=== PATIENT | female | born 1955 | race Caucasian/White ===

== ENCOUNTER 2019-08-14 11:04 | Outpatient (CLI) | payer MEDICAID, SELFPAY | END 2019-08-14 11:05 | disposition home or self-care (01) | LOC: SLEEP 11:19 | PROVIDERS: Family Provider Internal Medicine; PCP Internal Medicine; Visit Provider Internal Medicine | DX: G47.30 Sleep apnea, unspecified (principal) | CPT/HCPCS: 95810; 95811 ==

== ENCOUNTER 2019-08-22 14:03 | Outpatient (CLI) | payer MEDICAID, SELFPAY | END 2019-08-22 14:04 | disposition home or self-care (01) | LOC: RAD 14:08 | PROVIDERS: Family Provider Internal Medicine; PCP Internal Medicine; Visit Provider Internal Medicine | DX: K92.1 Melena (principal) | CPT/HCPCS: 85025 ==

== ENCOUNTER 2019-08-23 07:20 | Day surgery (SDC) | payer MEDICAID, SELFPAY ==
[2019-08-22 18:10] VITALS: BMI 36.6
[2019-08-23] MEDS: sodium chloride 0.9% 1,000 ML 30 ML (08:10)
[2019-08-23 08:12] VITALS: BP 156/80; PULSE 85; RESP 20; TEMP 36.6; O2SAT 95
--- NOTE | 2019-08-23 08:54 | ANES.PREANE2 ---
Pre-Anesthetic Assessment Pre-Anesthetic Assessment: Height/Weight: Height 1.65 m Weight 99.79 kg Temp Pulse Resp BP Pulse Ox 97.9 F 85 20 H 156/80 95 08/23/19 08:12 08/23/19 08:12 08/23/19 08:12 08/23/19 08:12 08/23/19 08:12 Preop Diagnosis: anemia Proposed Procedure: Operation Date: 08/23/19 09:00 Proposed Procedures p EGD(Not Applicable) - Gio Jain MD Was Beta Thomas taken within 24 hours: N/A Last intake: Intake Last Liquid Date 08/22/19 Last Liquid Time 22:00 Last Solid Date 08/22/19 Last Solid Time 19:00 Last Intake: 22:00 Social: Social History: No alcohol and No tobacco Exam: Pre-Anes Outpt Exam: alert, oriented x 3, clear to auscultation bilaterally and regular rate & rhythm Airway: Submandibular: WNL Cervical ROM: WNL MP: 2 Pulmonary: Pulmonary: Asthma, COPD, MUNGUIA, Sleep apnea and SOB Comments: CPAP CV/HEM: CV/HEM: Anemia, Angina (Stable), CAD, CHF and HTN Comments: AL at 38. Stress test OK PFO : : None reported Hepatic: Hepatic: None reported GI: GI: GERD and Hiatus hernia Metabolic: Metabolic: None reported Musc/skel: Musc/skel: Lower Back Pain and OA/DJD Neuropsych: Neuropsych: CVA Comments: CVA 2012 with TPA. resolved R side weakness Anesthetic Plan: ASA status: 3 Anesthesia: Anesthesia Evaluation and MAC Risk of > 500 ml blood loss (7ml/kg in children): No PFSH Anesthesia PFSH: Social History (Updated 08/22/19 @ 14:54 by SUDARSHAN Salazar) Smoking and tobacco status: never smoked Alcohol intake: never History of recent travel: No Data Anesthesia Cardiac Studies: No Data to Display
--- NOTE | 2019-08-23 09:22 | P.HPUD_ITS ---
H&P update H&P Update: DATE OF SURGERY/PROCEDURE: 08/23/19 DATE H&P PERFORMED: 12/04 H&P UPDATE INFORMATION: H&P completed within last 30 days, No changes to prior documentation and H&P is in [facility] EMR on date indicated PREOP DIAGNOSIS: anemia PLANNED PROCEDURE: Operation Date: 08/23/19 09:00 Proposed Procedures p EGD(Not Applicable) - Gio Jain MD Full H&P Perinent History: Medical/Surgical History: Medical History (Updated 08/22/19 @ 15:43 by Gio Jain MD) Essential (primary) hypertension (Acute) GERD (gastroesophageal reflux disease) (Acute) Sleep apnea in adult (Acute) Family History: Family History (Updated 08/07/19 @ 16:20 by Aranza Shankar LPN) Father Myocardial infarction Hypertension Mother Stroke Hypertension Other Clotting disorder Social History: Social History Smoking and tobacco status: never smoked Alcohol intake: never History of recent travel: No
[2019-08-23 09:36] VITALS: BP 127/81; PULSE 78; RESP 16; TEMP 36.1; O2SAT 94
--- NOTE | 2019-08-23 09:39 | ANE.PACU2 ---
 Inpatient post-anesthesia follow up: Airway intact: Yes Vital signs: Temperature 97.0 F Pulse Rate 78 Respiratory Rate 16 Blood Pressure 127/81 Pulse Oximetry 94 Oxygen Delivery Me thod Nasal Cannula Oxygen Flow Rate 3 Fraction of Inspir ed Oxygen Hydration adequate: Yes Nausea and vomiting: No Pain level: 1 Mental status: Baseline
[2019-08-23 09:44] VITALS: BP 121/79; PULSE 76; RESP 18; O2SAT 93
[2019-08-23 09:49] VITALS: BP 121/79; PULSE 76; RESP 18; O2SAT 93
--- NOTE | 2019-08-23 10:14 | SUR.PHASEII ---
Dr. Jain contacted about coming to see the pt and put in discharge orders. He did not respond. I called Addie, she stated Dr. Jain was in a pt room and she would ask him when she could. With still no repose or orders I called Addie again, there was no answer. I let the pt leave without discharge orders or seeing Dr. Jain, telling her I would call her with any additional information.
== END 2019-08-23 10:14 | disposition home or self-care (01) ==
PROVIDERS: Family Provider Internal Medicine; PCP Internal Medicine; Visit Provider Internal Medicine
PROC: 0DJ08ZZ Inspection of Upper Intestinal Tract, Via Natural or Artificial Opening Endoscopic (ICD-10-PCS; CPT 43235; principal; 2019-08-23 09:00)
DX: D64.9 Anemia, unspecified (principal); I10 Essential (primary) hypertension; K21.9 Gastro-esophageal reflux disease without esophagitis; G47.30 Sleep apnea, unspecified; Z82.49 Family history of ischemic heart disease and other diseases of the circulatory system; K22.2 Esophageal obstruction; K44.9 Diaphragmatic hernia without obstruction or gangrene; J44.9 Chronic obstructive pulmonary disease, unspecified; I25.10 Atherosclerotic heart disease of native coronary artery without angina pectoris; I11.0 Hypertensive heart disease with heart failure; I50.9 Heart failure, unspecified; I25.2 Old myocardial infarction
CPT/HCPCS: 12345; 43235; J2704; J7030

== ENCOUNTER 2019-09-28 08:26 | Outpatient (CLI) | payer MEDICAID, SELFPAY ==
--- NOTE | 2019-09-28 08:37 | FL_ITS ---
WS: [id number] UPPER GI WITH AIR TECHNICAL: FLUOROSCOPY TIME: 1.1 minutes CLINICAL INFORMATION: GERD W/O ESOPHAGITIS COMPARISON: None. FINDINGS: Swallowing: Normal. Esophagus: Normal caliber and motility. No evidence of high-grade stricture or mass. Gastroesophageal reflux: None observed. Stomach: Moderate esophageal hiatal hernia. Diffuse thickened gastric rugae consistent with gastritis . Mild mucosal irregularity GE junction with evidence of reflux esophagitis. Some of this likely due to recent history of healed Kenisha-Yung tear. No extraluminal contrast. Duodenum: Duodenal bulb and proximal small bowel normal in appearance. Other findings: Cholecystectomy clips. FL/FL upper GI w air [id number] IMPRESSION: 1. Normal esophageal motility. No evidence of high-grade stricture or mass. No rmal emptying. 2. Moderate esophageal hiatal hernia. Mild reflux visualized in the supine pos ition. 3. Mild irregularity at the GE junction consistent with esophagitis. No high- grade stricture. 4. History of recent healed Kenisha-Yung tear. No evidence of extraluminal co ntrast. 5. Diffuse thickening of the gastric rugae consistent with gastritis. 6. Normal duodenum.
== END 2019-09-28 08:27 | disposition home or self-care (01) ==
LOC: RAD 08:29
PROVIDERS: Family Provider Internal Medicine; PCP Internal Medicine; Visit Provider Surgery
DX: K21.9 Gastro-esophageal reflux disease without esophagitis (principal); K44.9 Diaphragmatic hernia without obstruction or gangrene
CPT/HCPCS: 74246

== ENCOUNTER 2019-12-23 10:41 | Emergency (ER) | payer MEDICAID, SELFPAY ==
[2019-12-23 10:42] VITALS: BP 169/93; PULSE 121; RESP 30; TEMP 36.6; O2SAT 100; BMI 38.6
--- NOTE | 2019-12-23 10:45 | CTR_ITS ---
PROCEDURE INFORMATION: Exam: CT Angiography Chest With Contrast Exam date and time: 12/23/2019 11:26 AM Age: 64 years old Clinical indication: Dyspnea TECHNIQUE: Imaging protocol: Computed tomographic angiography of the chest with intravenous contrast. 3D rendering: MIP and/or 3D reconstructed images were created by the technologist. Radiation optimization: All CT scans at this facility use at least one of these dose optimization techniques: automated exposure control; mA and/or kV adjustment per patient size (includes targeted exams where dose is matched to clinical indication); or iterative reconstruction. Contrast material: OMNI 350; Contrast volume: 95 ml; Contrast route: IV; COMPARISON: CTA Chest-Pulmonary Emb [id number] 10/14/2018 9:04 PM RADIATION DOSE METRICS: Total DLP: 559 mGy-cm FINDINGS: Pulmonary arteries: Limited opacification of the pulmonary arteries due to bolus timing with an attenuation coefficient in the main pulmonary artery of 204 HU, compared with an attenuation coefficient in the pulmonary venous confluence of 380 HU. No gross evidence for pulmonary embolus in the visualized pulmonary arteries. Aorta: Ectasia of the thoracic aorta. Lungs: Interstitial prominence and trace airspace disease. Pleural space: No significant pleural effusion. Heart: Mild left ventricular hypertrophy. Mediastinal space: Hiatal hernia. Lymph nodes: Subcentimeter lymph nodes. Upper abdomen: 8 mm left hepatic lobe cyst. Status post cholecystectomy. Spleen upper limits of normal in size. Bones/joints: Scoliosis and mild degenerative change . CT/CT angio chest PE protcl [id number] IMPRESSION: 1. Limited opacification of the pulmonary arteries due to bolus timing. No gross evidence for pulmonary embolus in the visualized pulmonary arteries. 2. Additional findings as described above. Radiation Dose CTDIVOL = (mGy): DLP = 559 (mGy-cm)
--- NOTE | 2019-12-23 10:45 | XRR_ITS ---
PROCEDURE INFORMATION: Exam: XR Chest, 1 View Exam date and time: 12/23/2019 10:48 AM Age: 64 years old Clinical indication: Dyspnea TECHNIQUE: Imaging protocol: XR of the chest Views: 1 view. COMPARISON: CR Chest 1 [place] [id number] 06/03/2019 11:06 AM FINDINGS: Lungs: Hyperinflation and mild interstitial prominence. No acute infiltrate. Pleural space: No pleural effusion. Heart/Mediastinum: No cardiomegaly. Bones/joints: Postoperative change in the left glenoid. Osteopenia and degenerative change. When correlating with the previous study, no significant interval changes are present. XR/XR chest 1V portable [id number] IMPRESSION: Hyperinflation and mild interstitial prominence.
--- NOTE | 2019-12-23 10:47 | ECG_ITS ---
Measurements Intervals [place] Rate: 106 P: 37 MO: 139 QRS: 29 QRSD: 82 T: 42 QT: 295 QTc: 392 SINUS TACHYCARDIA LOW QRS VOLTAGE IN PRECORDIAL LEADS [QRS DEFLECTION < 1.0 mV IN CHEST LEADS] NONSPECIFIC ST & T-WAVE ABNORMALITY ABNORMAL RHYTHM ECG Compared to ECG 06/03/2019 18:15:11 Low QRS voltage now present Sinus rhythm no longer present T-wave abnormality still present Electronically Signed On 12-23-2019 19:05:21 CDT by Glendy Pretty M.D. [email or web address]
[2019-12-23 10:52] VITALS: PULSE 93; RESP 18; O2SAT 99
[2019-12-23 10:52] LABS: Basophils % 0.6 %; Eosinophils # 0.1 10^3/uL (0.0-0.8); Eosinophils % 1.9 %; Lymphocytes # 1.6 10^3/uL (0.8-4.8); Lymphocytes % 30.5 %; Mean Corpuscular HGB Conc 32.5 g/dL (30.0-36.0); Mean Corpuscular Hemoglobin 27.3 pg (28.0-34.0); Mean Platelet Volume 9.9 fL (7.4-10.4); Monocytes # 0.4 10^3/uL (0.2-0.9); Monocytes % 6.5 %; Neutrophils # 3.2 10^3/uL (1.8-7.7); Nucleated Red Blood Cells % 0 %; Platelet Count 317 10^3/cmm (130-400); Red Blood Count 4.76 10^6/uL (4.1-5.3); Red Cell Distribution Width 13.1 % (12.1-15.1); White Blood Count 5.4 10^3/uL (4.0-10.0)
[2019-12-23] MEDS: ipratropium-albuterol 3 mL Neb INHALATION (10:52)
[2019-12-23] MEDS: LORazepam 2 mg/mL INJ 1 mL 1 MG IVP (10:55)
[2019-12-23] MEDS: ondansetron 2 mg/ML SDV 2 mL 4 MG IVP (10:55)
[2019-12-23] MEDS: sodium chloride 0.9% 500 ML 999 ML IV (10:55)
[2019-12-23 10:59] VITALS: PULSE 96
[2019-12-23 11:09] LABS: Troponin(5th) Baseline 7 ng/L (0-10)
[2019-12-23 11:11] LABS: D Dimer <= 0.27 ug/mIFEU (0-0.59)
[2019-12-23 11:17] LABS: Alanine Aminotransferase 11 U/L (0-33); Albumin Level 4.3 g/dL (3.5-5.2); Alkaline Phosphatase 156 IU/L (35-105); Anion Gap 20.1 (5-19); Aspartate Amino Transferase 15 U/L (0-32); Blood Urea Nitrogen 7 mg/dL (8-23); Calcium 9.7 mg/dL (8.5-10.5); Carbon Dioxide 22 mmol/L (22-29); Chloride 103 mmol/L (98-107); Globulin 2.2 g/dL (1.3-4.6); Glomerular Filtration Rate 63.2 mL/min (90-130); Glucose 161 mg/dL (65-115); NT Pro B Type Natriuretic Pept 99 pg/mL (0-125); Osmolality Calculated 291 mOsm/kg (285-295); Potassium 4.1 mmol/L (3.5-5.1); Sodium 141 mmol/L (136-145); Total Bilirubin 0.2 mg/dL (0.15-1.2); Total Protein 6.5 g/dL (6.6-8.7)
[2019-12-23 11:20] LABS: Lactic Sepsis W/Reflex 4.6 mmol/L (0.5-2.2)
[2019-12-23] MEDS: iohexol 350 mg/mL 100 mL Btl 95 ML IV (11:57)
[2019-12-23 12:36] LABS: Reflex Lactate Order REFLEX LACTIC ORDERD
[2019-12-23 12:43] LABS: Add Urine Microscopic? NO
[2019-12-23 12:44] LABS: Bilirubin Urine Neg (NEGATIVE); Blood Urine Neg (Negative); Glucose Urine UA Norm (Normal); Ketones Urine Negative (Negative); Leukocyte Esterase Urine Negative (Negative); Nitrate Urine Negative (Negative); Protein Urine Neg (Negative); Specific Gravity, Urine 1.005 (1.005-1.030); Urine Appearance Clear (CLEAR); Urine Color Yellow (Yellow); Urobilinogen Urine Norm (Negative); pH Urine 6 (5-7)
--- NOTE | 2019-12-23 12:58 | ED_ITS ---
HPI - SOB/Dyspnea General: Chief Complaint: Shortness of Breath/Dyspnea Stated Complaint: SOB Time Seen by Provider: 12/23/19 10:45 History of Present Illness: HPI Narrative: Patient states that she had an asthma attack yesterday and has had severe pain in her right upper back since. She states that she has a history of pulmonary embolus and this is exactly how that felt. MD elicited complaint: shortness of breath, pain with inspiration, asthma attack and anxiety Pertinent past history: asthma Onset (ago): day(s) Timing: improved Severity: severe Exacerbating factors: exertion, movement and stress Relieving factors: nothing Known history of: asthma Associated symptoms: Reports no associated symptoms Treatment prior to arrival: none Review of Systems General: Reports: 10 or more systems reviewed and unremarkable except in HPI and below Resp: Reports: dyspnea PFSH ED PFSH: Medical History Cervical spondylarthritis Chronic right hip pain CVA (cerebral vascular accident) Demyelinating disease Essential (primary) hypertension GERD (gastroesophageal reflux disease) H/O adenomatous polyp of colon H/O deep venous thrombosis H/O: GI bleed Healed or old pulmonary embolism Hiatal hernia Hypokalemia Myocardial infarction PFO (patent foramen ovale) Sleep apnea in adult TIA (transient ischemic attack) Surgical History History of esophagogastroduodenoscopy (EGD) (~08/2019) S/P cholecystectomy S/P colonoscopy S/P dilatation and curettage S/P hysterectomy S/P rotator cuff repair S/P total knee replacement Family History Father Myocardial infarction Hypertension Mother Stroke Hypertension Other Clotting disorder Social History Smoking and tobacco status: never smoked Alcohol intake: never Marital status: Number of children: 2 History of recent travel: No Current gender identity: Female Physical Exam Const: COMMON NORMALS: patient oriented x3 and alert HENMT: COMMON NORMALS: normocephalic and atraumatic HEAD & SCALP: normocephalic and atraumatic Neck/C-Spine: COMMON NORMALS: no meningeal signs and no JVD Resp: EFFORT & INSPECTION: Yes tachypneic and Yes respiratory distress Cardio: COMMON NORMALS: no JVD, regular rate and regular rhythm RATE: regular rate RHYTHM: regular rhythm GI: COMMON NORMALS: Normal to inspection, nondistended, normoactive bowel sounds present Extremity: COMMON NORMALS: normal to inspection and full ROM Neuro: COMMON NORMALS: patient oriented x3 SENSORIUM/ORIENTATION: Yes alert MENINGEAL SIGNS: Yes no meningeal signs Skin: COMMON NORMALS: no rashes or lesions noted, no jaundice and no mottling GENERAL SKIN EXAM: no rashes or lesions noted Course Vital Signs: Vital signs: Vital Signs Temperature 97.8 F 12/23/19 10:42 Pulse Rate 96 12/23/19 10:59 Respiratory Rate 18 12/23/19 10:52 Blood Pressure 169/93 12/23/19 10:42 Pulse Oximetry 99 12/23/19 10:52 MDM - SOB/Dyspnea Lab Data: Labs: Lab Results 12/23/19 12/23/19 12/23/19 Range/Units 10:45 10:45 10:45 WBC 5.4 (4.0-10.0) 10^3/ uL RBC 4.76 (4.1-5.3) 10^6/u L Hgb 13.0 (11.5-15.3) g/dL Hct 40.0 (37.0-47.0) % MCV 84.0 (81-99) fL MCH 27.3 L (28.0-34.0) pg MCHC 32.5 (30.0-36.0) g/dL RDW 13.1 (12.1-15.1) % Plt Count 317 (130-400) 10^3/c mm MPV 9.9 (7.4-10.4) fL Neut % (Auto) 59.0 % Lymph % (Auto) 30.5 % [place] % (Auto) 6.5 % Eos % (Auto) 1.9 % Baso % (Auto) 0.6 % Neut # (Auto) 3.2 (1.8-7.7) 10^3/u L Lymph # (Auto) 1.6 (0.8-4.8) 10^3/u L [place] # (Auto) 0.4 (0.2-0.9) 10^3/u L Eos # (Auto) 0.1 (0.0-0.8) 10^3/u L Baso # (Auto) 0.0 (0.0-0.1) 10^3/u L Nucleated RBC % (a uto) 0 % Nucleated RBCs # 0.0 /100WBC D-Dimer <= 0.27 (0-0.59) ug/mIFE U Sodium 141 (136-145) mmol/L Potassium 4.1 (3.5-5.1) mmol/L Chloride 103 (98-107) mmol/L Carbon Dioxide 22 (22-29) mmol/L Anion Gap 20.1 H (5-19) BUN 7 L (8-23) mg/dL Creatinine 0.9 (0.5-0.9) mg/dL GFR Calculation 63.2 L (90-130) mL/min Glucose 161 H (65-115) mg/dL Calculated Osmolal ity 291 (285-295) mOsm/k g Lactic Acid (0.5-2.2) mmol/L Calcium 9.7 (8.5-10.5) mg/dL Total Bilirubin 0.2 (0.15-1.2) mg/dL AST 15 (0-32) U/L ALT 11 (0-33) U/L Alkaline Phosphata se 156 H (35-105) IU/L Troponin T Baselin e (0-10) ng/L Troponin T 120 Min havasupai (0-10) ng/L Delta Troponin T (0-10) ABS# NT-Pro-B Natriuret Pep 99 (0-125) pg/mL Total Protein 6.5 L (6.6-8.7) g/dL Albumin 4.3 (3.5-5.2) g/dL Globulin 2.2 (1.3-4.6) g/dL Urine Color (Yellow) Urine Appearance (CLEAR) Urine pH (5-7) Ur Specific Gravit y (1.005-1.030) Urine Protein (Negative) Urine Glucose (UA) (Normal) Urine Ketones (Negative) Urine Blood (Negative) Urine Nitrate (Negative) Urine Bilirubin (NEGATIVE) Urine Urobilinogen (Negative) mg/dL Ur Leukocyte Denise ase (Negative) 12/23/19 12/23/19 12/23/19 Range/Units 10:45 10:45 12:30 WBC (4.0-10.0) 10^3/ uL RBC (4.1-5.3) 10^6/u L Hgb (11.5-15.3) g/dL Hct (37.0-47.0) % MCV (81-99) fL MCH (28.0-34.0) pg MCHC (30.0-36.0) g/dL RDW (12.1-15.1) % Plt Count (130-400) 10^3/c mm MPV (7.4-10.4) fL Neut % (Auto) % Lymph % (Auto) % [place] % (Auto) % Eos % (Auto) % Baso % (Auto) % Neut # (Auto) (1.8-7.7) 10^3/u L Lymph # (Auto) (0.8-4.8) 10^3/u L [place] # (Auto) (0.2-0.9) 10^3/u L Eos # (Auto) (0.0-0.8) 10^3/u L Baso # (Auto) (0.0-0.1) 10^3/u L Nucleated RBC % (a uto) % Nucleated RBCs # /100WBC D-Dimer (0-0.59) ug/mIFE U Sodium (136-145) mmol/L Potassium (3.5-5.1) mmol/L Chloride (98-107) mmol/L Carbon Dioxide (22-29) mmol/L Anion Gap (5-19) BUN (8-23) mg/dL Creatinine (0.5-0.9) mg/dL GFR Calculation (90-130) mL/min Glucose (65-115) mg/dL Calculated Osmolal ity (285-295) mOsm/k g Lactic Acid 4.6 H* (0.5-2.2) mmol/L Calcium (8.5-10.5) mg/dL Total Bilirubin (0.15-1.2) mg/dL AST (0-32) U/L ALT (0-33) U/L Alkaline Phosphata se (35-105) IU/L Troponin T Baselin e 7 (0-10) ng/L Troponin T 120 Min havasupai (0-10) ng/L Delta Troponin T (0-10) ABS# NT-Pro-B Natriuret Pep (0-125) pg/mL Total Protein (6.6-8.7) g/dL Albumin (3.5-5.2) g/dL Globulin (1.3-4.6) g/dL Urine Color Yellow (Yellow) Urine Appearance Clear (CLEAR) Urine pH 6 (5-7) Ur Specific Gravit y 1.005 (1.005-1.030) Urine Protein Neg (Negative) Urine Glucose (UA) Norm (Normal) Urine Ketones Negative (Negative) Urine Blood Neg (Negative) Urine Nitrate Negative (Negative) Urine Bilirubin Neg (NEGATIVE) Urine Urobilinogen Norm (Negative) mg/dL Ur Leukocyte Denise ase Negative (Negative) 12/23/19 Range/Units 12:39 WBC (4.0-10.0) 10^3/ uL RBC (4.1-5.3) 10^6/u L Hgb (11.5-15.3) g/dL Hct (37.0-47.0) % MCV (81-99) fL MCH (28.0-34.0) pg MCHC (30.0-36.0) g/dL RDW (12.1-15.1) % Plt Count (130-400) 10^3/c mm MPV (7.4-10.4) fL Neut % (Auto) % Lymph % (Auto) % [place] % (Auto) % Eos % (Auto) % Baso % (Auto) % Neut # (Auto) (1.8-7.7) 10^3/u L Lymph # (Auto) (0.8-4.8) 10^3/u L [place] # (Auto) (0.2-0.9) 10^3/u L Eos # (Auto) (0.0-0.8) 10^3/u L Baso # (Auto) (0.0-0.1) 10^3/u L Nucleated RBC % (a uto) % Nucleated RBCs # /100WBC D-Dimer (0-0.59) ug/mIFE U Sodium (136-145) mmol/L Potassium (3.5-5.1) mmol/L Chloride (98-107) mmol/L Carbon Dioxide (22-29) mmol/L Anion Gap (5-19) BUN (8-23) mg/dL Creatinine (0.5-0.9) mg/dL GFR Calculation (90-130) mL/min Glucose (65-115) mg/dL Calculated Osmolal ity (285-295) mOsm/k g Lactic Acid (0.5-2.2) mmol/L Calcium (8.5-10.5) mg/dL Total Bilirubin (0.15-1.2) mg/dL AST (0-32) U/L ALT (0-33) U/L Alkaline Phosphata se (35-105) IU/L Troponin T Baselin e (0-10) ng/L Troponin T 120 Min havasupai 6.00 (0-10) ng/L Delta Troponin T -1.00 L (0-10) ABS# NT-Pro-B Natriuret Pep (0-125) pg/mL Total Protein (6.6-8.7) g/dL Albumin (3.5-5.2) g/dL Globulin (1.3-4.6) g/dL Urine Color (Yellow) Urine Appearance (CLEAR) Urine pH (5-7) Ur Specific Gravit y (1.005-1.030) Urine Protein (Negative) Urine Glucose (UA) (Normal) Urine Ketones (Negative) Urine Blood (Negative) Urine Nitrate (Negative) Urine Bilirubin (NEGATIVE) Urine Urobilinogen (Negative) mg/dL Ur Leukocyte Denise ase (Negative) Discharge Plan Discharge Patient Disposition: Home, Self-Care Clinical Impression: Acute dyspnea Thoracic back sprain Qualifiers: Encounter type: initial encounter Qualified Code(s): S23.9XXA - Sprain of unspecified parts of thorax, initial encounter Condition: Stable Prescriptions: No Action irbesartan [Avapro] 150 mg tablet 150 mg PO DAILY RF: 0 fluticasone propionate [Flonase Allergy Relief] 50 mcg/actuation spray,suspension 1 spray INTRANASAL BID RF: 0 docusate sodium [Colace] 100 mg capsule 100 mg PO BID RF: 0 acetaminophen [Tylenol] 325 mg tablet 325 - 650 mg PO PRN RF: 0 sucralfate [Carafate] 1 gram tablet 1 gm PO Q8H 30 Days Qty: 90 RF: 2 potassium chloride 20 mEq tablet extended release 20 meq PO BID RF: 0 nitroglycerin [Nitrostat] 0.4 mg tablet, sublingual 0.4 mg SUBLINGUAL Q5M PRN (Reason: Chest Pain) RF: 0 pantoprazole 40 mg tablet,delayed release (DR/EC) 40 mg PO Q12H Qty: 60 RF: 0 albuterol sulfate 2.5 mg /3 mL (0.083 %) Solution For Nebulization 2.5 mg INHALATION Q4H PRN (Reason: Shortness Of Breath) RF: 0 Benadryl 25 mg Capsule 25 - 50 mg PO BEDTIME RF: 0 ProAir HFA 90 mcg/actuation Hfa Aerosol Inhaler 1 - 2 puff INHALATION Q4H PRN (Reason: Shortness Of Breath) RF: 0 Mylanta Gas Minis 42 mg Tablet,Chewable See Rx Instructions .ROUTE .COMPLEX RF: 0 furosemide 40 mg tablet 40 mg PO DAILY RF: 0 Discharge Orders: Discharge Order (Routine); Ordered 12/23/19 Ordered By: Sterling Mg Referrals: Gio Jain MD [Primary Care Provider] - Coding Level of Care Code ED International Affairs Vice President for Chg Fwd Exam Comprehensive
[2019-12-23 14:30] VITALS: BP 118/84; PULSE 93; O2SAT 95
== END 2019-12-23 14:30 | disposition home or self-care (01) ==
PROVIDERS: Emergency Provider Family Medicine; PCP Internal Medicine
DX: R06.00 Dyspnea, unspecified (principal); S23.9XXA Sprain of unspecified parts of thorax, initial encounter; X58.XXXA Exposure to other specified factors, initial encounter; Z86.73 Personal history of transient ischemic attack (TIA), and cerebral infarction without residual deficits; I10 Essential (primary) hypertension; I25.2 Old myocardial infarction
CPT/HCPCS: 12345; 36415; 71045; 71275; 80053; 81003; 83605; 83880; 84484; 85025; 85378; 93005; 94640; 96374; 96375; 99283; 99284; J2060; J2405; J7040; Q9967

== ENCOUNTER 2020-02-04 11:51 | Outpatient (CLI) | payer MEDICAID, SELFPAY ==
--- NOTE | 2020-02-04 12:02 | XR_ITS ---
WS: [id number] CHEST 2 VIEWS HISTORY: Pneumonia COMPARISON: 12/23/2019 Lungs: Clear with no abnormality. No pleural effusion or pneumothorax. Cardiac size: Normal. Mediastinum/Aorta: Mild atherosclerosis aorta. Bones: Normal. XR/XR chest 2V* [id number] IMPRESSION: Partially calcified aorta. No pneumonia.
[2020-02-04 12:50] LABS: Basophils # 0.1 10^3/uL (0.0-0.1); Basophils % 0.8 %; Eosinophils # 0.1 10^3/uL (0.0-0.8); Eosinophils % 1.6 %; Hematocrit 44.7 % (37.0-47.0); Hemoglobin 14.1 g/dL (11.5-15.3); Lymphocytes # 1.8 10^3/uL (0.8-4.8); Lymphocytes % 23.4 %; Mean Corpuscular HGB Conc 31.5 g/dL (30.0-36.0); Mean Corpuscular Hemoglobin 26.3 pg (28.0-34.0); Mean Corpuscular Volume 83.4 fL (81-99); Monocytes # 0.5 10^3/uL (0.2-0.9); Monocytes % 6.5 %; Neutrophils # 5.15 10^3/uL (1.8-7.7); Nucleated Red Blood Cells % 0 %; Platelet Count 355 10^3/cmm (130-400); Red Blood Count 5.36 10^6/uL (4.1-5.3); Red Cell Distribution Width 13.2 % (12.1-15.1); White Blood Count 7.7 10^3/uL (4.0-10.0)
[2020-02-05 15:45] LABS: Immunoglobulin E 4 kU/L (<OR=114)
== END 2020-02-04 11:52 | disposition home or self-care (01) ==
PROVIDERS: PCP Internal Medicine; Visit Provider Internal Medicine Pulmonary Disease
DX: R04.2 Hemoptysis (principal); J45.40 Moderate persistent asthma, uncomplicated; K21.9 Gastro-esophageal reflux disease without esophagitis; G47.33 Obstructive sleep apnea (adult) (pediatric); Z99.89 Dependence on other enabling machines and devices
CPT/HCPCS: 71046; 82785; 85025

== ENCOUNTER → 2020-02-22 10:47 | Outpatient (BNVA) | payer MEDICAID, SELFPAY | PROVIDERS: PCP Internal Medicine; Visit Provider Internal Medicine | DX: R04.2 Hemoptysis (principal) | CPT/HCPCS: 87635 ==

== ENCOUNTER 2020-02-27 06:51 | Outpatient (CLI) | payer MEDICAID, SELFPAY ==
--- NOTE | 2020-02-27 07:15 | PFTS_ITS ---
Date of Study:02/27/20 Date of Dictation: MECHANICS: Forced vital capacity (FVC) is normal. Forced expiratory volume in one second (FEV1) is normal. FEV1/FVC is normal. FLOW VOLUME LOOP: Normal. LUNG VOLUMES: Total lung capacity (TLC) is normal. Residual volume (RV) is reduced. DIFFUSING CAPACITY FOR CARBON MONOXIDE: Normal. INTERPRETATION: The pulmonary function tests are normal. There is no significant postbronchodilator response. The total lung capacity is normal. The reduced residual volume is secondary to an increase in expiratory reserve volume. Gas exchange (DLCO) is normal. MTDD
== END 2020-02-27 06:52 | disposition home or self-care (01) ==
LOC: RT 06:54
PROVIDERS: PCP Internal Medicine; Visit Provider Internal Medicine Pulmonary Disease
DX: J45.40 Moderate persistent asthma, uncomplicated (principal); K21.9 Gastro-esophageal reflux disease without esophagitis; G47.33 Obstructive sleep apnea (adult) (pediatric); Z99.89 Dependence on other enabling machines and devices; R04.2 Hemoptysis
CPT/HCPCS: 94060; 94726; 94729; J7611

== ENCOUNTER → 2020-07-03 14:10 | Outpatient (BNVA) | payer MEDICAID, SELFPAY | PROVIDERS: PCP Internal Medicine; Visit Provider Internal Medicine | DX: R10.9 Unspecified abdominal pain (principal); R30.0 Dysuria | CPT/HCPCS: 81000 ==

== ENCOUNTER 2020-07-08 08:28 | Emergency (ER) | payer MEDICAID, SELFPAY ==
[2020-07-08 08:33] VITALS: BP 168/91; PULSE 90; RESP 16; TEMP 36.6; O2SAT 97; BMI 41.1
[2020-07-08 08:39] VITALS: BP 151/98; PULSE 74; RESP 18; O2SAT 95
--- NOTE | 2020-07-08 08:54 | CT_ITS ---
WS: [id number] CT ABDOMEN AND PELVIS WITH CONTRAST HISTORY: Diarrhea and abdominal pain. RIGHT lower quadrant pain for one week. TECHNIQUE: Imaging performed of the abdomen and pelvis with IV contrast. Single phase imaging of the abdomen. Coronal and sagittal reformats are submitted. All CT scans at [facility] use at least one of these dose optimization techniques: automated exposure control; mA and/or kV adjustment per patient size (includes targeted exams where dose is matched to clinical indication); or iterativ e reconstruction. IV CONTRAST: Omnipaque 300; 95 mL IV. Oral contrast: No DLP: 1674.08 mGy.cm COMPARISON: 04/27/2019 Lower thorax: Lung bases are clear. Heart is normal size. Moderate size hiatal hernia. Liver/biliary system: Normal size liver. Simple cysts in the LEFT lobe of the liver. No bile duct dil atation. Gallbladder: Status post cholecystectomy. Pancreas: Normal. Spleen: Normal. Adrenal glands: Normal. Right kidney: Normal. Left kidney: Normal. Aorta: Normal. Lymphadenopathy: None. Free fluid: None. GI tract: Numerous medicinal tablets in the stomach. The appendix is normal. No GI tract obstruction. Numerous diverticula are present within the distal descending and sigmoid colon. No abscess or free fluid. Abdominal wall: Fat containing umbilical hernia. Pelvis: Prior hysterectomy. Urinary bladder is negative. Bones: Vacuum disc phenomenon at L5-S1. Bilateral facet joint arthritis at L4-5 and L5-S1. CT/CT abdomen pelvis w con* [id number] IMPRESSION: 1. Descending colon and sigmoid diverticulosis. No definite evidence for acute diverticulitis. There is no abscess or pericolonic inflammation. 2. Normal appendix. 3. No renal obstruction. 4. Prior cholecystectomy. 5. LEFT hepatic cysts.
--- NOTE | 2020-07-08 08:54 | XR_ITS ---
WS: [id number] PORTABLE CHEST HISTORY: dyspnea/cough COMPARISON: 02/04/2020 Lungs are clear and well expanded. No pleural effusion or pneumothorax. Cardiac size: Mildly enlarged cardiac silhouette. Mediastinum/Aorta: Mild atherosclerosis aorta. No osseous abnormality seen. XR/XR chest 1V portable [id number] IMPRESSION: Unremarkable portable chest.
--- NOTE | 2020-07-08 09:05 | W.ED.ABDPA2 ---
HPI - Abdominal Pain General: Chief Complaint: Abdominal Pain Stated Complaint: ABD PAIN Time Seen by Provider: 07/08/20 08:35 History of Present Illness: HPI narrative: 64-year-old female presents complaining with abdominal pain and nausea and bloating that began overnight. She had some diarrhea the last couple of days and has had generalized flulike symptoms as well with loose watery watery stools at times she has been very nauseated as well she localizes most of her pain to the right lower quadrant she denies any fever. MD elicited complaint: abdominal pain Onset (ago): hour(s) Pain Consistency: constant Location: RLQ Severity: moderate Quality: cramping and aching Radiation: none Exacerbating factors: eating and movement Associated Symptoms: Reports anorexia, bloating, change in bowel habits, GI cramping and nausea; Denies belching, change in stool character, chills, coffee ground emesis, constipation, diarrhea, dyspepsia, dysuria, excessive flatus, fever(s), heartburn, hematochezia, hematuria, hematemesis, fecal incontinence, loose stools, melena, poor appetite, syncope and vomiting Review of Systems Const: Denies: fever(s) or chills ENMT: Denies: throat pain, ear or mastoid pain, nasal discharge or nasal congestion Card: Denies: syncope Resp: Denies: dyspnea, productive cough or non-productive cough GI: Reports: nausea, GI cramping and change in bowel habits; Denies: vomiting, hematemesis, coffee ground emesis, heartburn, diarrhea, constipation, belching, fecal incontinence, change in stool character, hematochezia or melena : Denies: dysuria or hematuria Skin/Breast: Denies: rash or pruritus PFSH ED PFSH: Medical History Cervical spondylarthritis Chronic right hip pain CVA (cerebral vascular accident) Demyelinating disease Essential (primary) hypertension GERD (gastroesophageal reflux disease) H/O adenomatous polyp of colon H/O deep venous thrombosis H/O: GI bleed Healed or old pulmonary embolism Hiatal hernia Hypokalemia Myocardial infarction LOCO (obstructive sleep apnea) PFO (patent foramen ovale) Sleep apnea in adult TIA (transient ischemic attack) Surgical History History of esophagogastroduodenoscopy (EGD) (~08/2019) S/P cholecystectomy S/P colonoscopy S/P dilatation and curettage S/P hysterectomy S/P rotator cuff repair S/P total knee replacement Family History Father Myocardial infarction Hypertension Mother Stroke Hypertension Other Clotting disorder Social History Smoking and tobacco status: never smoked Second hand smoke exposure: Yes Alcohol intake: never Lives independently: Yes Household members: none Marital status: Number of children: 2 Current occupational status: retired and disabled History of recent travel: No Current gender identity: Female Physical Exam Const: COMMON NORMALS: no acute distress GENERAL APPEARANCE: cooperative and comfortable ORIENTATION/CONSCIOUSNESS: Yes awake, Yes oriented to person, Yes oriented to place and Yes oriented to time HENMT: COMMON NORMALS: normocephalic, atraumatic and hearing grossly normal bilaterally HEAD & SCALP: normocephalic and atraumatic Neck/C-Spine: COMMON NORMALS: no JVD Resp: COMMON NORMALS: normal respiratory effort, No retractions, No use of accessory muscles and clear to auscultation bilaterally AUSCULTATION: clear to auscultation bilaterally Cardio: COMMON NORMALS: no JVD, regular rate, regular rhythm and No murmurs present (Cardio) RATE: regular rate RHYTHM: regular rhythm GI: COMMON NORMALS: Soft to palpation and No hepatosplenomegaly present AUSCULTATION: Yes normoactive bowel sounds PALPATION: Yes Soft to palpation, Yes Tenderness to palpation present (GI) Details: RLQ, No Guarding due to palpation present (GI) and Yes No hepatosplenomegaly present Extremity: COMMON NORMALS: normal to inspection, capillary refill normal, no clubbing, cyanosis or edema, no calf tenderness and no pedal edema Neuro: SENSORIUM/ORIENTATION: Yes oriented to person, Yes oriented to place and Yes oriented to time Skin: COMMON NORMALS: no rashes or lesions noted GENERAL SKIN EXAM: no rashes or lesions noted Course Vital Signs: Vital signs: Vital Signs Temperature 97.9 F 07/08/20 08:33 Pulse Rate 74 12/22/20 08:39 Respiratory Rate 18 07/08/20 09:18 Blood Pressure 151/98 07/08/20 08:39 Pulse Oximetry 95 07/08/20 09:18 MDM - Abdominal Pain MDM Narrative: Medical decision making narrative: Reviewed CT and labs with the patient. She is actually feeling quite a bit better will discharge home with Zofran if she has any worsening or change symptoms return no evidence of diverticulitis no evidence of appendicitis Lab Data: Labs: Lab Results 07/08/20 07/08/20 07/08/20 Range/Units 08:15 08:15 09:03 WBC 6.3 (4.0-10.0) 10^3/ uL RBC 5.02 (4.1-5.3) 10^6/u L Hgb 13.6 (11.5-15.3) g/dL Hct 41.8 (37.0-47.0) % MCV 83.3 (81-99) fL MCH 27.1 L (28.0-34.0) pg MCHC 32.5 (30.0-36.0) g/dL RDW 13.5 (12.1-15.1) % Plt Count 309 (130-400) 10^3/c mm MPV 10.7 H (7.4-10.4) fL Neut % (Auto) 66.7 % Lymph % (Auto) 22.7 % Clay % (Auto) 6.5 % Eos % (Auto) 1.9 % Baso % (Auto) 0.6 % Neut # (Auto) 4.22 (1.8-7.7) 10^3/u L Lymph # (Auto) 1.4 (0.8-4.8) 10^3/u L Clay # (Auto) 0.4 (0.2-0.9) 10^3/u L Eos # (Auto) 0.1 (0.0-0.8) 10^3/u L Baso # (Auto) 0.0 (0.0-0.1) 10^3/u L Nucleated RBC % (a uto) 0 % Nucleated RBCs # 0.0 /100WBC Sodium 136 (136-145) mmol/L Potassium 3.8 (3.5-5.1) mmol/L Chloride 100 (98-107) mmol/L Carbon Dioxide 26 (22-29) mmol/L Anion Gap 13.8 (5-19) BUN 8 (8-23) mg/dL Creatinine 0.9 (0.5-0.9) mg/dL GFR Calculation 63.2 L (90-130) mL/min Glucose 141 H (65-115) mg/dL Calculated Osmolal ity 283 L (285-295) mOsm/k g Calcium 9.2 (8.5-10.5) mg/dL Total Bilirubin 0.3 (0.15-1.2) mg/dL AST 17 (0-32) U/L ALT 14 (0-33) U/L Alkaline Phosphata se 131 H (35-105) IU/L Creatine Kinase 65 (26-192) U/L Total Protein 6.6 (6.6-8.7) g/dL Albumin 4.1 (3.5-5.2) g/dL Globulin 2.5 (1.3-4.6) g/dL Lipase 31 (13-60) U/L Urine Color Straw (Yellow) Urine Appearance Clear (CLEAR) Urine pH 7 (5-7) Ur Specific Gravit y 1.005 (1.005-1.030) Urine Protein Neg (Negative) Urine Glucose (UA) Norm (Normal) Urine Ketones Negative (Negative) Urine Blood Neg (Negative) Urine Nitrate Negative (Negative) Urine Bilirubin Neg (Negative) Urine Urobilinogen Norm (Negative) mg/dL Ur Leukocyte Denise ase Negative (Negative) Discharge Plan Discharge Patient Disposition: Home Clinical Impression: Abdominal pain Condition: Stable Prescriptions: New Zofran 4 mg tablet 4 mg PO Q6H PRN (Reason: nausea and vomiting) Qty: 15 RF: 0 No Action docusate sodium [Colace] 100 mg capsule 100 mg PO BID@,18 RF: 0 acetaminophen [Tylenol] 325 mg tablet 325 - 650 mg PO PRN RF: 0 furosemide 40 mg tablet See Rx Instructions .ROUTE .COMPLEX RF: 0 potassium chloride 20 mEq tablet extended release 60 meq PO BID Qty: 90 RF: 6 nitroglycerin [Nitrostat] 0.4 mg tablet, sublingual 0.4 mg SUBLINGUAL Q5M PRN (Reason: Chest Pain) RF: 0 albuterol sulfate 2.5 mg /3 mL (0.083 %) solution for nebulization 2.5 mg INHALATION Q4H PRN (Reason: Shortness Of Breath) Qty: 15 RF: 0 ProAir HFA 90 mcg/actuation HFA aerosol inhaler 1 - 2 puff INHALATION Q4H PRN (Reason: Shortness Of Breath) Qty: 8.5 RF: 3 pantoprazole 40 mg tablet,delayed release (DR/EC) 40 mg PO Q12H Qty: 60 RF: 3 fluticasone propionate [Flonase Allergy Relief] 50 mcg/actuation spray,suspension 1 spray INTRANASAL BID Qty: 15.8 RF: 3 Natural Tears 1.4 % Drops 1 drp ophthalmic (eye) DAILY PRN (Reason: Dry Eyes) RF: 0 Aleve 220 mg Tablet 220 mg PO Q12H PRN (Reason: Pain) RF: 0 28 mg iron- 800 mcg Tablet 1 tab PO PRN RF: 0 Azo Urinary Pain Relief 99.5 mg Tablet 99.5 mg PO PRN RF: 0 Wtc-Fak-Dhsh Tab 1 tab PO DAILY@06 RF: 0 Advair Diskus 500-50 mcg/dose blister with device 1 inh INHALATION BID@06,18 RF: 0 Singulair 10 mg tablet 10 mg PO DAILY@22 RF: 0 Avapro 150 mg tablet 150 mg PO DAILY@06 RF: 0 diphenhydramine HCl [Benadryl] 25 mg Capsule 25 - 50 mg PO DAILY@22 RF: 0 Mylanta Gas Minis 42 mg Tablet,Chewable See Rx Instructions .ROUTE .COMPLEX RF: 0 Discharge Orders: Discharge ED (Routine); Ordered 07/08/20 Ordered By: Cornel Rivers Referrals: Gio Jain MD [Primary Care Provider] - Discharge Diet: Clear Liquid Discharge Activity: Increase activity as tolerated Patient Instructions: Abdominal Pain (ED) Activity Restrictions/Additional Instructions: Liquid diet for 24 to 48 hours and advance as tolerated. He was tested for Covid recommend that you monitor yourself for symptoms and monitor your oxygen saturation with a pulse ox given to you at the time of discharge. If you have any worsening of symptoms return. Should remain in self quarantine until week received your Covid result. 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
[2020-07-08 09:10] LABS: Add Urine Microscopic? NO
[2020-07-08] MEDS: ondansetron 2 mg/ML SDV 2 mL 4 MG IVP (09:10)
[2020-07-08 09:11] LABS: Basophils % 0.6 %; Eosinophils # 0.1 10^3/uL (0.0-0.8); Eosinophils % 1.9 %; Hematocrit 41.8 % (37.0-47.0); Hemoglobin 13.6 g/dL (11.5-15.3); Lymphocytes # 1.4 10^3/uL (0.8-4.8); Lymphocytes % 22.7 %; Mean Corpuscular HGB Conc 32.5 g/dL (30.0-36.0); Mean Corpuscular Hemoglobin 27.1 pg (28.0-34.0); Mean Corpuscular Volume 83.3 fL (81-99); Mean Platelet Volume 10.7 fL (7.4-10.4); Monocytes # 0.4 10^3/uL (0.2-0.9); Monocytes % 6.5 %; Neutrophils # 4.22 10^3/uL (1.8-7.7); Neutrophils % 66.7 %; Nucleated Red Blood Cells % 0 %; Platelet Count 309 10^3/cmm (130-400); Red Blood Count 5.02 10^6/uL (4.1-5.3); Red Cell Distribution Width 13.5 % (12.1-15.1); White Blood Count 6.3 10^3/uL (4.0-10.0)
[2020-07-08 09:18] VITALS: RESP 18; O2SAT 95
[2020-07-08] MEDS: morphine 4 mg/mL SDV 1 mL 2 MG IVP (09:18)
[2020-07-08 09:24] LABS: Alanine Aminotransferase 14 U/L (0-33); Albumin Level 4.1 g/dL (3.5-5.2); Alkaline Phosphatase 131 IU/L (35-105); Anion Gap 13.8 (5-19); Aspartate Amino Transferase 17 U/L (0-32); Blood Urea Nitrogen 8 mg/dL (8-23); Calcium 9.2 mg/dL (8.5-10.5); Carbon Dioxide 26 mmol/L (22-29); Chloride 100 mmol/L (98-107); Creatine Phosphokinase 65 U/L (26-192); Globulin 2.5 g/dL (1.3-4.6); Glomerular Filtration Rate 63.2 mL/min (90-130); Glucose 141 mg/dL (65-115); Lipase 31 U/L (13-60); Osmolality Calculated 283 mOsm/kg (285-295); Potassium 3.8 mmol/L (3.5-5.1); Sodium 136 mmol/L (136-145); Total Bilirubin 0.3 mg/dL (0.15-1.2); Total Protein 6.6 g/dL (6.6-8.7)
[2020-07-08 09:35] LABS: Bilirubin Urine Neg (Negative); Blood Urine Neg (Negative); Glucose Urine UA Norm (Normal); Ketones Urine Negative (Negative); Leukocyte Esterase Urine Negative (Negative); Nitrate Urine Negative (Negative); Protein Urine Neg (Negative); Specific Gravity, Urine 1.005 (1.005-1.030); Urine Appearance Clear (CLEAR); Urine Color Straw (Yellow); Urobilinogen Urine Norm (Negative); pH Urine 7 (5-7)
[2020-07-08] MEDS: iohexol 300 mg/mL 100 mL Btl IV (09:48)
[2020-07-08 12:23] VITALS: BP 121/95; PULSE 84; RESP 16; O2SAT 97
[2020-07-09 18:20] LABS: Coronavirus Test Green County Not Detected
== END 2020-07-08 12:26 | disposition home or self-care (01) ==
PROVIDERS: Emergency Provider Family Medicine; PCP Internal Medicine
DX: R10.9 Unspecified abdominal pain (principal); Z86.73 Personal history of transient ischemic attack (TIA), and cerebral infarction without residual deficits; I10 Essential (primary) hypertension; I25.2 Old myocardial infarction
CPT/HCPCS: 12345; 71045; 74177; 80053; 81003; 82550; 83690; 85025; 87635; 96374; 96375; 99281; 99283; J2270; J2405; Q9967

== ENCOUNTER 2020-07-15 12:12 | Emergency (ER) | payer MEDICAID, SELFPAY ==
[2020-07-15 12:17] VITALS: BP 174/108; PULSE 92; RESP 16; TEMP 36.7; O2SAT 97; BMI 40.4
[2020-07-15 13:20] VITALS: BP 143/86; PULSE 75; RESP 16; O2SAT 97
--- NOTE | 2020-07-15 13:50 | ED_ITS ---
HPI - Abdominal Pain General: Chief Complaint: Abdominal Pain Stated Complaint: PAIN IN RT ABDOMEN/PASSING BLOOD Time Seen by Provider: 07/15/20 13:18 History of Present Illness: HPI narrative: 64-year-old female returns emergency room with continued complaint of right-sided abdominal pain she has now began passing bright red blood. We had seen her last week at that point her concerned about an appendicitis CT abdomen did not show any appendicitis showed some diverticulosis but no diverticulitis. Her white count at that time was normal and we did not start her on any antibiotics did advise her to return if she had blood or worsening of symptoms she returns now today. She denies any fever. She she has had watery bilious and bloody stools he denies any vomiting. MD elicited complaint: abdominal pain Onset (ago): day(s) Pain Consistency: intermittent Location: RLQ Severity: moderate Quality: cramping Radiation: none Migration to: no migration Exacerbating factors: nothing Relieving factors: nothing Associated Symptoms: Reports anorexia, bloating, change in bowel habits, change in stool character, chills, GI cramping, diarrhea and dyspepsia; Denies belching, coffee ground emesis, constipation, dysuria, excessive flatus, fever(s), heartburn, hematochezia, hematuria, hematemesis, fecal incontinence, loose stools, melena, nausea, poor appetite, syncope and vomiting Review of Systems Const: Reports: chills; Denies: fever(s) ENMT: Denies: throat pain, ear or mastoid pain, nasal discharge or nasal congestion Card: Denies: syncope Resp: Denies: dyspnea, productive cough or non-productive cough GI: Reports: diarrhea, bloating, GI cramping, change in bowel habits and change in stool character; Denies: nausea, hematemesis, coffee ground emesis, heartburn, constipation, belching, excessive flatus, fecal incontinence, hematochezia or melena : Denies: dysuria or hematuria Skin/Breast: Denies: rash or pruritus PFSH ED PFSH: Medical History Cervical spondylarthritis Chronic right hip pain CVA (cerebral vascular accident) Demyelinating disease Essential (primary) hypertension GERD (gastroesophageal reflux disease) H/O adenomatous polyp of colon H/O deep venous thrombosis H/O: GI bleed Healed or old pulmonary embolism Hiatal hernia Hypokalemia Myocardial infarction LOCO (obstructive sleep apnea) PFO (patent foramen ovale) Sleep apnea in adult TIA (transient ischemic attack) Surgical History History of esophagogastroduodenoscopy (EGD) (~08/2019) S/P cholecystectomy S/P colonoscopy S/P dilatation and curettage S/P hysterectomy S/P rotator cuff repair S/P total knee replacement Family History Father Myocardial infarction Hypertension Mother Stroke Hypertension Other Clotting disorder Social History Smoking and tobacco status: never smoked Second hand smoke exposure: Yes Alcohol intake: never Lives independently: Yes Household members: none Marital status: Number of children: 2 Current occupational status: retired and disabled History of recent travel: No Current gender identity: Female Physical Exam Const: COMMON NORMALS: no acute distress GENERAL APPEARANCE: cooperative and comfortable ORIENTATION/CONSCIOUSNESS: Yes awake, Yes oriented to person, Yes oriented to place and Yes oriented to time HENMT: COMMON NORMALS: normocephalic, atraumatic and hearing grossly normal bilaterally HEAD & SCALP: normocephalic and atraumatic Neck/C-Spine: COMMON NORMALS: no JVD Resp: COMMON NORMALS: normal respiratory effort, No retractions, No use of accessory muscles and clear to auscultation bilaterally AUSCULTATION: clear to auscultation bilaterally Cardio: COMMON NORMALS: no JVD, regular rate, regular rhythm and No murmurs present (Cardio) RATE: regular rate RHYTHM: regular rhythm GI: COMMON NORMALS: Soft to palpation and No hepatosplenomegaly present AUSCULTATION: Yes normoactive bowel sounds PALPATION: Yes Soft to palpation, No Tenderness to palpation present (GI), No Guarding due to palpation present (GI) and Yes No hepatosplenomegaly present Extremity: COMMON NORMALS: normal to inspection, capillary refill normal, no clubbing, cyanosis or edema, no calf tenderness and no pedal edema Neuro: SENSORIUM/ORIENTATION: Yes oriented to person, Yes oriented to place and Yes oriented to time Skin: COMMON NORMALS: no rashes or lesions noted GENERAL SKIN EXAM: no rashes or lesions noted Course Vital Signs: Vital signs: Vital Signs Temperature 98.1 F 07/15/20 12:17 Pulse Rate 75 07/15/20 13:20 Respiratory Rate 16 07/15/20 13:20 Blood Pressure 143/86 07/15/20 13:20 Pulse Oximetry 97 07/15/20 13:20 MDM - Abdominal Pain MDM Narrative: Medical decision making narrative: CT shows mild diverticulitis. Will start on antibiotics reviewed her allergy list discussed with the patient were going to start her on Bactrim and Flagyl at the only options we have left at this point given her allergy list however follow-up with primary care doctor within the next week return if has further problems Lab Data: Labs: Lab Results 07/15/20 07/15/20 07/15/20 Range/Units 13:15 13:51 13:51 WBC 8.1 (4.0-10.0) 10^3/ uL RBC 5.12 (4.1-5.3) 10^6/u L Hgb 14.0 (11.5-15.3) g/dL Hct 42.6 (37.0-47.0) % MCV 83.2 (81-99) fL MCH 27.3 L (28.0-34.0) pg MCHC 32.9 (30.0-36.0) g/dL RDW 13.4 (12.1-15.1) % Plt Count 306 (130-400) 10^3/c mm MPV 10.3 (7.4-10.4) fL Neut % (Auto) 71.0 % Lymph % (Auto) 20.9 % [place] % (Auto) 6.4 % Eos % (Auto) 0.5 % Baso % (Auto) 0.5 % Neut # (Auto) 5.72 (1.8-7.7) 10^3/u L Lymph # (Auto) 1.7 (0.8-4.8) 10^3/u L [place] # (Auto) 0.5 (0.2-0.9) 10^3/u L Eos # (Auto) 0.0 (0.0-0.8) 10^3/u L Baso # (Auto) 0.0 (0.0-0.1) 10^3/u L Nucleated RBC % (a uto) 0 % Nucleated RBCs # 0.0 /100WBC Sodium 139 (136-145) mmol/L Potassium 4.1 (3.5-5.1) mmol/L Chloride 101 (98-107) mmol/L Carbon Dioxide 27 (22-29) mmol/L Anion Gap 15.1 (5-19) BUN 9 (8-23) mg/dL Creatinine 0.9 (0.5-0.9) mg/dL GFR Calculation 63.2 L (90-130) mL/min Glucose 115 (65-115) mg/dL Calculated Osmolal ity 288 (285-295) mOsm/k g Calcium 8.9 (8.5-10.5) mg/dL Total Bilirubin 0.4 (0.15-1.2) mg/dL AST 19 (0-32) U/L ALT 17 (0-33) U/L Alkaline Phosphata se 159 H (35-105) IU/L Total Protein 6.9 (6.6-8.7) g/dL Albumin 4.0 (3.5-5.2) g/dL Globulin 2.9 (1.3-4.6) g/dL Lipase 48 (13-60) U/L Urine Color Yellow (Yellow) Urine Appearance Clear (CLEAR) Urine pH 6.5 (5-7) Ur Specific Gravit y 1.005 (1.005-1.030) Urine Protein Neg (Negative) Urine Glucose (UA) Norm (Normal) Urine Ketones Negative (Negative) Urine Blood Neg (Negative) Urine Nitrate Negative (Negative) Urine Bilirubin Neg (Negative) Urine Urobilinogen Norm (Negative) mg/dL Ur Leukocyte Denise ase Negative (Negative) Discharge Plan Discharge Patient Disposition: Home Clinical Impression: Diverticulitis Condition: Stable Prescriptions: New Flagyl 500 mg tablet 500 mg PO BID 7 Days Qty: 14 RF: 0 Bactrim DS 800-160 mg tablet 1 tab PO BID 7 Days Qty: 14 RF: 0 No Action docusate sodium [Colace] 100 mg capsule 100 mg PO BID@06,18 RF: 0 acetaminophen [Tylenol] 325 mg tablet 325 - 650 mg PO PRN RF: 0 furosemide 40 mg tablet See Rx Instructions .ROUTE .COMPLEX RF: 0 potassium chloride 20 mEq tablet extended release 60 meq PO BID Qty: 90 RF: 6 nitroglycerin [Nitrostat] 0.4 mg tablet, sublingual 0.4 mg SUBLINGUAL Q5M PRN (Reason: Chest Pain) RF: 0 albuterol sulfate 2.5 mg /3 mL (0.083 %) solution for nebulization 2.5 mg INHALATION Q4H PRN (Reason: Shortness Of Breath) Qty: 15 RF: 0 ProAir HFA 90 mcg/actuation HFA aerosol inhaler 1 - 2 puff INHALATION Q4H PRN (Reason: Shortness Of Breath) Qty: 8.5 RF: 3 pantoprazole 40 mg tablet,delayed release (DR/EC) 40 mg PO Q12H Qty: 60 RF: 3 fluticasone propionate [Flonase Allergy Relief] 50 mcg/actuation spray,suspension 1 spray INTRANASAL BID Qty: 15.8 RF: 3 polyvinyl alcohol [Natural Tears] 1.4 % Drops 1 drp ophthalmic (eye) DAILY PRN (Reason: Dry Eyes) RF: 0 naproxen sodium [Aleve] 220 mg Tablet 220 mg PO Q12H PRN (Reason: Pain) RF: 0 PNV [id number] fumarate-FA [] 28 mg iron- 800 mcg Tablet 1 tab PO PRN RF: 0 Azo Urinary Pain Relief 99.5 mg Tablet 99.5 mg PO PRN RF: 0 Qqk-Kwa-Gnxv Tab 1 tab PO DAILY@06 RF: 0 fluticasone propion-salmeterol [Advair Diskus] 500-50 mcg/dose blister with device 1 inh INHALATION BID@,18 RF: 0 montelukast [Singulair] 10 mg tablet 10 mg PO DAILY@22 RF: 0 irbesartan [Avapro] 150 mg tablet 150 mg PO DAILY@06 RF: 0 ondansetron HCl [Zofran] 4 mg tablet 4 mg PO Q6H PRN (Reason: nausea and vomiting) Qty: 15 RF: 0 sucralfate 1 gram tablet 1 g PO Q8H RF: 0 irbesartan 150 mg tablet 150 mg PO DAILY@0600 RF: 0 diphenhydramine HCl [Benadryl] 25 mg Capsule 25 - 50 mg PO DAILY@22 RF: 0 Mylanta Gas Minis 42 mg Tablet,Chewable See Rx Instructions .ROUTE .COMPLEX RF: 0 Discharge Orders: Discharge ED (Routine); Ordered 07/15/20 Ordered By: Cornel Rivers Referrals: Gio Jain MD [Primary Care Provider] - Discharge Diet: Full LIquid Discharge Activity: Increase activity as tolerated Activity Restrictions/Additional Instructions: Up with your primary care doctor the next 7 days to recheck your hemoglobin. Coding Level of Care Code ED Quarantine Officer for Chg Fwd Exam Comprehensive
--- NOTE | 2020-07-15 13:50 | CT_ITS ---
WS: [id number] CT ABDOMEN PELVIS TECHNIQUE: Contrast-enhanced CT of the abdomen and pelvis with coronal and sagittal reformatted image s. CLINICAL INFORMATION: abd pain COMPARISON: July 08, 2020 DLP: 1576.[address] scans at [facility] use at least one of these dose optimization techniques: automat ed exposure control; mA and/or kV adjustment per patient size (includes targeted exams where dose is matched to clinical indication); or iterative reconstruction. FINDINGS: Diffuse fatty infiltration liver. Stable left hepatic cysts. Normal portal vein and splenic vein. Cho lecystectomy clips. Normal spleen. Mild fatty atrophy of the pancreas. Adrenal glands are normal. Nor mal renal parenchymal enhancement. No hydronephrosis. Small esophageal hiatal hernia. Lung bases are well aerated. Adrenal glands are normal. No hydronephrosis. No evidence of small or large bowel obstruction. Sigmoid diverticulosis. Tiny amount of sigmoid colon in the left lower quadrant with mild induration suspicious for early or mild acute diverticulitis. R ecommend correlation with infectious symptoms. Colon is otherwise normal in appearance. Normal air-fi lled appendix in the right lower quadrant. No free fluid in the pelvis. Disc space narrowing L5-S1. CT/CT abdomen pelvis w con* [id number] IMPRESSION: 1. Sigmoid diverticulosis with a tiny amount of sigmoid colon thickening and i nduration suspicious for early or mild acute diverticulitis. Recommend correlat ion with infectious symptoms. 2. Appendix is normal in the right lower quadrant. 3. Small and large bowel are otherwise unremarkable. 4. Stable hepatic cysts. 5. Small esophageal hiatal hernia. Attempted notification Cornel Rivers DO at 07/15/2020 2:58 PM.
[2020-07-15 13:55] LABS: Add Urine Microscopic? NO
[2020-07-15 13:58] LABS: Basophils % 0.5 %; Eosinophils % 0.5 %; Hematocrit 42.6 % (37.0-47.0); Lymphocytes # 1.7 10^3/uL (0.8-4.8); Lymphocytes % 20.9 %; Mean Corpuscular HGB Conc 32.9 g/dL (30.0-36.0); Mean Corpuscular Hemoglobin 27.3 pg (28.0-34.0); Mean Corpuscular Volume 83.2 fL (81-99); Mean Platelet Volume 10.3 fL (7.4-10.4); Monocytes # 0.5 10^3/uL (0.2-0.9); Monocytes % 6.4 %; Neutrophils # 5.72 10^3/uL (1.8-7.7); Nucleated Red Blood Cells % 0 %; Platelet Count 306 10^3/cmm (130-400); Red Blood Count 5.12 10^6/uL (4.1-5.3); Red Cell Distribution Width 13.4 % (12.1-15.1); White Blood Count 8.1 10^3/uL (4.0-10.0)
[2020-07-15 14:05] LABS: Bilirubin Urine Neg (Negative); Blood Urine Neg (Negative); Glucose Urine UA Norm (Normal); Ketones Urine Negative (Negative); Leukocyte Esterase Urine Negative (Negative); Nitrate Urine Negative (Negative); Protein Urine Neg (Negative); Specific Gravity, Urine 1.005 (1.005-1.030); Urine Appearance Clear (CLEAR); Urine Color Yellow (Yellow); Urobilinogen Urine Norm (Negative); pH Urine 6.5 (5-7)
[2020-07-15] MEDS: iohexol 300 mg/mL 100 mL Btl IV (14:23)
[2020-07-15 14:26] LABS: Alanine Aminotransferase 17 U/L (0-33); Alkaline Phosphatase 159 IU/L (35-105); Anion Gap 15.1 (5-19); Aspartate Amino Transferase 19 U/L (0-32); Blood Urea Nitrogen 9 mg/dL (8-23); Calcium 8.9 mg/dL (8.5-10.5); Carbon Dioxide 27 mmol/L (22-29); Chloride 101 mmol/L (98-107); Globulin 2.9 g/dL (1.3-4.6); Glomerular Filtration Rate 63.2 mL/min (90-130); Glucose 115 mg/dL (65-115); Lipase 48 U/L (13-60); Osmolality Calculated 288 mOsm/kg (285-295); Potassium 4.1 mmol/L (3.5-5.1); Sodium 139 mmol/L (136-145); Total Bilirubin 0.4 mg/dL (0.15-1.2); Total Protein 6.9 g/dL (6.6-8.7)
[2020-07-15 15:50] VITALS: BP 148/88; PULSE 70; RESP 16; O2SAT 97
== END 2020-07-15 15:50 | disposition home or self-care (01) ==
PROVIDERS: Emergency Provider Family Medicine; PCP Internal Medicine
DX: K57.92 Diverticulitis of intestine, part unspecified, without perforation or abscess without bleeding (principal); Z86.73 Personal history of transient ischemic attack (TIA), and cerebral infarction without residual deficits; I10 Essential (primary) hypertension; I25.2 Old myocardial infarction; Z77.22 Contact with and (suspected) exposure to environmental tobacco smoke (acute) (chronic)
CPT/HCPCS: 12345; 74177; 80053; 81003; 83690; 85025; 96374; 99283; Q9967

== ENCOUNTER → 2020-08-06 15:32 | Outpatient (BNVA) | payer MEDICAID, SELFPAY | PROVIDERS: PCP Internal Medicine; Visit Provider Surgery | DX: Z01.812 Encounter for preprocedural laboratory examination (principal); K21.9 Gastro-esophageal reflux disease without esophagitis; K62.5 Hemorrhage of anus and rectum | CPT/HCPCS: 87635 ==

== ENCOUNTER 2020-08-29 08:04 | Emergency (ER) | payer MEDICAID, SELFPAY ==
[2020-08-29 08:08] VITALS: BP 139/85; PULSE 95; RESP 16; TEMP 36.2; O2SAT 96; BMI 39.9
--- NOTE | 2020-08-29 08:22 | ED_ITS ---
HPI - GI Bleed General: Chief complaint: GI Bleed Stated complaint: AB PAIN, HEAVY RECTUM BLEEDING Time Seen by Provider: 08/29/20 08:23 History of Present Illness: HPI Narrative: Patient ambulates the ER with a history of bright red rectal bleeding that began an hour ago. Patient was seen by Dr. Haynes yesterday as scheduled for colonoscopy next week due to her history of diverticulosis and right lower quadrant pain. Patient states she is been diagnosed internal hemorrhoids. Said if she started bleeding she was told to come to the ER right away and and that is why she presents today. Pain her abdomen is been ongoing for the last couple months. Has been on a round of antibiotics which did help improve the pain to some degree. complaint: blood on toilet paper Onset (ago): minute(s) Pain Consistency: intermittent Severity: mild Relieving factors: none Exacerbating factors: none Context: hemorrhoids and other (Diverticulosis) Associated symptoms: Reports abdominal pain; Denies chills, easy bruising, fever(s), headache(s), nausea, rash or vomiting Review of Systems Const: Denies: fever(s), chills or body aches Eyes: Denies: change in vision or blurry vision ENMT: Denies: throat pain or nasal congestion Card: Denies: chest pain or dyspnea on exertion Resp: Denies: dyspnea, productive cough or non-productive cough GI: Reports: abdominal pain and other (Blood on toilet paper none in the s tool); Denies: nausea or vomiting Musc: Denies: extremity pain Skin/Breast: Denies: rash Neuro: Denies: headache(s) Psych: Denies: anxiety or depression Javier/Lymph: Denies: easy bruising PFSH ED PFSH: Medical History Cervical spondylarthritis Chronic right hip pain CVA (cerebral vascular accident) Demyelinating disease Essential (primary) hypertension GERD (gastroesophageal reflux disease) H/O adenomatous polyp of colon H/O deep venous thrombosis H/O: GI bleed Healed or old pulmonary embolism Hiatal hernia Hypokalemia Myocardial infarction LOCO (obstructive sleep apnea) PFO (patent foramen ovale) Sleep apnea in adult TIA (transient ischemic attack) Surgical History History of esophagogastroduodenoscopy (EGD) (~08/2019) S/P cholecystectomy S/P colonoscopy S/P dilatation and curettage S/P hysterectomy S/P rotator cuff repair S/P total knee replacement Family History Father Myocardial infarction Hypertension Mother Stroke Hypertension Other Clotting disorder Social History Smoking and tobacco status: never smoked Second hand smoke exposure: Yes Alcohol intake: never Lives independently: Yes Household members: none Marital status: Number of children: 2 Current occupational status: retired and disabled History of recent travel: No Current gender identity: Female Physical Exam Const: COMMON NORMALS: no acute distress, average body habitus and patient oriented x3 HENMT: COMMON NORMALS: normocephalic HEAD & SCALP: normal to inspection and normocephalic FACE & SINUS: normal facial exam Eye: COMMON NORMALS: conjunctivae normal GENERAL EYE: appearance normal, both eyes and all related structures CONJUNCTIVA: Yes conjunctivae normal Neck/C-Spine: COMMON NORMALS: no JVD Chest: COMMONS NORMALS: normal inspection of the chest Resp: COMMON NORMALS: normal respiratory effort and clear to auscultation bilaterally AUSCULTATION: clear to auscultation bilaterally Cardio: COMMON NORMALS: no JVD, regular rate and regular rhythm RATE: regular rate RHYTHM: regular rhythm GI: COMMON NORMALS: Normal to inspection, nondistended, normoactive bowel sounds present PALPATION: Yes Tenderness to palpation present (GI) Details: LLQ and RLQ Extremity: COMMON NORMALS: normal to inspection and full ROM Neuro: COMMON NORMALS: patient oriented x3 Course Vital Signs: Vital signs: Vital Signs Temperature 97.2 F L 08/29/20 08:08 Pulse Rate 95 08/29/20 08:08 Respiratory Rate 16 08/29/20 08:08 Blood Pressure 139/85 08/29/20 08:08 Pulse Oximetry 96 08/29/20 08:08 Discharge Plan Discharge Prescriptions: No Action docusate sodium [Colace] 100 mg capsule 100 mg PO BID@ RF: 0 acetaminophen [Tylenol] 325 mg tablet 325 - 650 mg PO PRN RF: 0 furosemide 40 mg tablet See Rx Instructions .ROUTE .COMPLEX RF: 0 potassium chloride 20 mEq tablet extended release 60 meq PO BID Qty: 90 RF: 6 nitroglycerin [Nitrostat] 0.4 mg tablet, sublingual 0.4 mg SUBLINGUAL Q5M PRN (Reason: Chest Pain) RF: 0 albuterol sulfate 2.5 mg /3 mL (0.083 %) solution for nebulization 2.5 mg INHALATION Q4H PRN (Reason: Shortness Of Breath) Qty: 15 RF: 0 fluticasone propionate [Flonase Allergy Relief] 50 mcg/actuation spray,suspension 1 spray INTRANASAL BID Qty: 15.8 RF: 3 albuterol sulfate [ProAir HFA] 90 mcg/actuation HFA aerosol inhaler See Rx Instructions .ROUTE .COMPLEX Qty: 8.5 RF: 3 pantoprazole 40 mg tablet,delayed release (DR/EC) 40 mg PO Q12H Qty: 60 RF: 3 polyvinyl alcohol [Natural Tears] 1.4 % Drops 1 drp ophthalmic (eye) DAILY PRN (Reason: Dry Eyes) RF: 0 Azo Urinary Pain Relief 99.5 mg Tablet 99.5 mg PO PRN RF: 0 Ibu-Iew-Necn Tab 1 tab PO DAILY@06 RF: 0 fluticasone propion-salmeterol [Advair Diskus] 500-50 mcg/dose blister with device 1 inh INHALATION BID@06,18 RF: 0 montelukast [Singulair] 10 mg tablet 10 mg PO DAILY@22 RF: 0 irbesartan [Avapro] 150 mg tablet 150 mg PO DAILY@06 RF: 0 ondansetron HCl [Zofran] 4 mg tablet 4 mg PO Q6H PRN (Reason: nausea and vomiting) Qty: 15 RF: 0 irbesartan 150 mg tablet 150 mg PO DAILY@0600 RF: 0 diphenhydramine HCl [Benadryl] 25 mg Capsule 25 - 50 mg PO DAILY@22 RF: 0 Mylanta Gas Minis 42 mg Tablet,Chewable See Rx Instructions .ROUTE .COMPLEX RF: 0 Coding Level of Care Code ED Exchange Architect for Lennox Hernández
[2020-08-29 08:46] LABS: Basophils % 0.4 %; Eosinophils % 0.4 %; Hematocrit 38.3 % (37.0-47.0); Hemoglobin 12.7 g/dL (11.5-15.3); Lymphocytes # 1.3 10^3/uL (0.8-4.8); Lymphocytes % 18.9 %; Mean Corpuscular HGB Conc 33.2 g/dL (30.0-36.0); Mean Corpuscular Hemoglobin 27.5 pg (28.0-34.0); Mean Corpuscular Volume 83.1 fL (81-99); Mean Platelet Volume 10.4 fL (7.4-10.4); Monocytes # 0.5 10^3/uL (0.2-0.9); Monocytes % 6.7 %; Neutrophils # 5.01 10^3/uL (1.8-7.7); Nucleated Red Blood Cells % 0 %; Platelet Count 265 10^3/cmm (130-400); Red Blood Count 4.61 10^6/uL (4.1-5.3); White Blood Count 6.9 10^3/uL (4.0-10.0)
[2020-08-29 08:56] LABS: INR 1.03 (0.8-1.2)
[2020-08-29 09:01] LABS: Alanine Aminotransferase 11 U/L (0-33); Albumin Level 3.9 g/dL (3.5-5.2); Alkaline Phosphatase 128 IU/L (35-105); Anion Gap 12.6 (5-19); Aspartate Amino Transferase 14 U/L (0-32); Blood Urea Nitrogen 8 mg/dL (8-23); Calcium 8.7 mg/dL (8.5-10.5); Carbon Dioxide 26 mmol/L (22-29); Chloride 103 mmol/L (98-107); Creatinine Clr Calc Pharmacy 88.3402; Globulin 2.6 g/dL (1.3-4.6); Glomerular Filtration Rate 72.4 mL/min (90-130); Glucose 106 mg/dL (65-115); Osmolality Calculated 285 mOsm/kg (285-295); Potassium 3.6 mmol/L (3.5-5.1); Sodium 138 mmol/L (136-145); Total Bilirubin 0.3 mg/dL (0.15-1.2); Total Protein 6.5 g/dL (6.6-8.7)
--- NOTE | 2020-08-29 09:01 | CT_ITS ---
WS: [id number] CT ABDOMEN PELVIS TECHNIQUE: Contrast-enhanced CT of the abdomen and pelvis with coronal and sagittal reformatted image s. CLINICAL INFORMATION: Bleed, recent hx of possible diverticulitis, COMPARISON: July 15, 2020 DLP: 1678.[address] scans at [facility] use at least one of these dose optimization techniques: automat ed exposure control; mA and/or kV adjustment per patient size (includes targeted exams where dose is matched to clinical indication); or iterative reconstruction. FINDINGS: Prior hysterectomy. Previously described inflammatory stranding and edema about the sigmoid colon has essentially resolved since the prior examination. No evidence of acute diverticulitis today. No drai nable abscess or fluid collection. Sigmoid diverticulosis. Normal appendix in the right lower quadrant. Mild diffuse fatty infiltration of the liver. Incidental hepatic cysts. Normal portal vein and splenic vein. Cholecystectomy clips. Small esophagea l hiatal hernia. Slight atelectasis in the lung bases. Normal spleen. Normal pancreas. Adrenal glands are normal. Normal renal parenchymal enhancement. No hydronephrosis. Incidental fat-containing umbi lical hernia. Disc space narrowing L5-S1. CT/CT abdomen pelvis w con* [id number] IMPRESSION: 1. Previously described mild diverticulitis has essentially resolved. Normal s igmoid colon today. 2. No drainable abscess or fluid collection. 3. Normal appendix in the right lower quadrant. 4. Otherwise normal small and large bowel. No evidence of obstruction. 5. Small esophageal hiatal hernia.
[2020-08-29] MEDS: iohexol 300 mg/mL 100 mL Btl IV (09:42)
[2020-08-29 10:28] VITALS: BP 114/67; PULSE 77; RESP 18; O2SAT 96
== END 2020-08-29 10:28 | disposition home or self-care (01) ==
PROVIDERS: Emergency Provider Nurse Practitioner Family; PCP Internal Medicine
DX: Z86.73 Personal history of transient ischemic attack (TIA), and cerebral infarction without residual deficits (principal); I10 Essential (primary) hypertension; I25.2 Old myocardial infarction; Z77.22 Contact with and (suspected) exposure to environmental tobacco smoke (acute) (chronic)
CPT/HCPCS: 36415; 74177; 80053; 85025; 85610; 86850; 86900; 96360; 99283; Q9967

== ENCOUNTER → 2020-09-19 15:23 | Outpatient (BNVA) | payer MEDICAID, SELFPAY | PROVIDERS: PCP Internal Medicine; Visit Provider Surgery | DX: K21.9 Gastro-esophageal reflux disease without esophagitis (principal); K62.5 Hemorrhage of anus and rectum | CPT/HCPCS: 87635 ==

== ENCOUNTER 2020-09-24 06:12 | Day surgery (SDC) | payer MEDICAID, SELFPAY ==
[2020-09-22 10:08] VITALS: BMI 39.9
--- NOTE | 2020-09-24 06:47 | ANES.PREANE2 ---
Pre-Anesthetic Assessment Pre-Anesthetic Assessment: Height/Weight: Height 1.65 m Weight 108.862 kg Preop Diagnosis: Bleeding per rectum Proposed Procedure: Operation Date: 09/24/20 08:00 Proposed Procedures p EGD/colon [id number] K21.9 K62.5(Not Applicable) - MD virgil Davis Colonoscopy(Not Applicable) - Dedrick Carter MD Was Beta Thomas taken within 24 hours: N/A Social: Social History: No alcohol and No tobacco Exam: Pre-Anes Outpt Exam: alert, oriented x 3, clear to auscultation bilaterally and regular rate & rhythm Airway: Submandibular: Other (Receeding mandible ) Cervical ROM: Other (limited) MP: 4 Pulmonary: Pulmonary: Asthma CV/HEM: CV/HEM: CAD and HTN : : None reported Hepatic: Hepatic: None reported GI: GI: GERD Metabolic: Metabolic: DM and Morbid obesity Musc/skel: Musc/skel: OA/DJD Neuropsych: Neuropsych: None reported Anesthetic Plan: ASA status: 3 Anesthesia: MAC PFSH Anesthesia PFSH: Medical History Cervical spondylarthritis Chronic right hip pain CVA (cerebral vascular accident) Demyelinating disease Essential (primary) hypertension GERD (gastroesophageal reflux disease) H/O adenomatous polyp of colon H/O deep venous thrombosis H/O: GI bleed Healed or old pulmonary embolism Hiatal hernia Hypokalemia Myocardial infarction LOCO (obstructive sleep apnea) PFO (patent foramen ovale) Sleep apnea in adult TIA (transient ischemic attack) Surgical History History of esophagogastroduodenoscopy (EGD) (~08/2019) S/P cholecystectomy S/P colonoscopy S/P dilatation and curettage S/P hysterectomy S/P rotator cuff repair S/P total knee replacement Family History Father Myocardial infarction Hypertension Mother Stroke Hypertension Other Clotting disorder Social History Smoking and tobacco status: never smoked Second hand smoke exposure: Yes Alcohol intake: never Lives independently: Yes Household members: none Marital status: Number of children: 2 Current occupational status: retired and disabled History of recent travel: No Current gender identity: Female Data Anesthesia Cardiac Studies: No Data to Display
[2020-09-24] MEDS: sodium chloride 0.9% 1,000 ML 30 ML IV (07:01)
[2020-09-24 07:06] VITALS: BP 151/102; PULSE 98; RESP 18; TEMP 36.2; O2SAT 97
--- NOTE | 2020-09-24 07:37 | W.PM.OPSUD ---
Surgery/Procedure H&P Update DATE OF PROCEDURE: September 24, 2020 DATE H&P PERFORMED: 08/28/20 H&P UPDATE INFORMATION: I have reviewed H&P completed within last 30 days, I have examined patient prior to procedure and No changes to prior documentation PREOP DIAGNOSIS: Bleeding per rectum PRIMARY INDICATION FOR PROCEDURE: The same PLANNED PROCEDURE: Operation Date: 09/24/20 08:00 Proposed Procedures p EGD/colon [id number] K21.9 K62.5(Not Applicable) - Dedrick Carter MD s Colonoscopy(Not Applicable) - Dedrick Carter MD
[2020-09-24 08:10] VITALS: BP 103/71; PULSE 89; RESP 16; TEMP 36.1; O2SAT 94
--- NOTE | 2020-09-24 14:30 | ANE.PACU2 ---
Inpatient post-anesthesia follow up: Airway intact: Yes Vital signs: Temperature 97 F Pulse Rate 89 Respiratory Rate 16 Blood Pressure 103/71 Pulse Oximetry 94 Oxygen Delivery Me thod Oxygen Flow Rate Fraction of Inspir ed Oxygen Hydration adequate: Yes Nausea and vomiting: No Pain level: 1 Mental status: Baseline
[2020-09-25 14:05] LABS: H. Pylori / CLO Test Negative
== END 2020-09-24 08:45 | disposition home or self-care (01) ==
PROVIDERS: PCP Internal Medicine; Visit Provider Surgery
PROC: 0DJ08ZZ Inspection of Upper Intestinal Tract, Via Natural or Artificial Opening Endoscopic (ICD-10-PCS; CPT 43235; principal; 2020-09-24 08:00)
PROC: 0DJD8ZZ Inspection of Lower Intestinal Tract, Via Natural or Artificial Opening Endoscopic (ICD-10-PCS; CPT 45378; 2020-09-24 08:00)
DX: K62.5 Hemorrhage of anus and rectum (principal); K57.30 Diverticulosis of large intestine without perforation or abscess without bleeding; K44.9 Diaphragmatic hernia without obstruction or gangrene; K29.70 Gastritis, unspecified, without bleeding; Z86.73 Personal history of transient ischemic attack (TIA), and cerebral infarction without residual deficits; I10 Essential (primary) hypertension; K21.9 Gastro-esophageal reflux disease without esophagitis; G47.33 Obstructive sleep apnea (adult) (pediatric); I25.2 Old myocardial infarction; I25.10 Atherosclerotic heart disease of native coronary artery without angina pectoris; E66.01 Morbid (severe) obesity due to excess calories; Z68.39 Body mass index [BMI] 39.0-39.9, adult
CPT/HCPCS: 43239; 45378; 87077; 96360; J2704; J7030

== ENCOUNTER 2021-02-01 07:46 | Inpatient (IN) | payer MEDICAID, SELFPAY ==
[2021-02-01] VITALS (10 sets, daily range): BP systolic 111–146; BP diastolic 64–84; PULSE 78–99; RESP 16–26; TEMP 38–38.8; O2SAT 91–95; BMI 33.3
--- NOTE | 2021-02-01 07:57 | ED_ITS ---
Documented by User: MARÍA Aden 02/02/21 07:47 HPI - SOB/Dyspnea General: Chief Complaint: Shortness of Breath/Dyspnea Stated Complaint: NON PRODUCTIVE COUGH Time Seen by Provider: 02/01/21 07:56 History of Present Illness: HPI Narrative: Patient is a 65-year-old female comes to the ED with shortness of breath and cough. Past medical history of sleep apnea, GERD, hypertension, heart failure, diverticulosis, asthma and COPD. Patient says she is not on any home oxygen. Symptoms started 10 days ago on January 22. She says she was around some cigarette smoke which usually flares up her asthma. She was using her inhalers with no relief. She then started developing nausea, diarrhea, dry cough, shortness of breath and chest pain. She saw her primary care physician of Cheko Sepulveda on January 24 and they did a rapid Covid on patient and it was negative. She was diagnosed with bronchitis given a prescription for levofloxacin. Patient said that helped for about 2 days and all her symptoms got worse afterwards. She endorses being nauseous but denies any episodes of emesis. She has had a decreased appetite and says that nothing tastes good currently. She has multiple episodes of diarrhea a day. She states she does have some blood in her stool. She also/endorses hematuria, but no dysuria or increased urine frequency. Chest pain she describes is centrally located and it hurts whenever she takes a deep breath. Chest pain started when her asthma flared up approximately 10 days ago. Associated symptoms: Reports chest pain and nausea; Deny abdominal pain, fever(s), orthopnea, palpitations or vomiting Review of Systems Const: Reports: change in appetite (Decreased) and fatigue; Denies: fever(s) or chills Eyes: Denies: change in vision or eye discomfort ENMT: Denies: throat pain, odynophagia, nasal discharge or nasal congestion Card: Reports: chest pain; Denies: palpitations, edema, swelling of feet/ankles, dyspnea on exertion or orthopnea Resp: Reports: dyspnea and non-productive cough; Denies: productive cough GI: Reports: nausea and diarrhea; Denies: abdominal pain, vomiting, constipation or hematochezia : Reports: hematuria; Denies: flank pain or dysuria Musc: Denies: neck pain, back pain or extremity swelling Skin/Breast: Denies: rash or new lesions Neuro: Denies: headache(s), numbness in extremities or weakness in extremities PFSH ED PFSH: Medical History Bleeding per rectum Cervical spondylarthritis Chronic right hip pain Cough with hemoptysis CVA (cerebral vascular accident) Demyelinating disease Diverticulitis Diverticulosis Essential (primary) hypertension Flank pain Fourth nerve palsy of left eye GERD (gastroesophageal reflux disease) H/O adenomatous polyp of colon H/O deep venous thrombosis H/O: GI bleed Healed or old pulmonary embolism Hiatal hernia Hypokalemia Morbid obesity with BMI of 40.0-44.9, adult Myocardial infarction LOCO (obstructive sleep apnea) LOCO on CPAP PFO (patent foramen ovale) PND (paroxysmal nocturnal dyspnea) Sixth nerve palsy of right eye Sleep apnea in adult TIA (transient ischemic attack) Surgical History History of esophagogastroduodenoscopy (EGD) (~08/2019) S/P cholecystectomy S/P colonoscopy S/P dilatation and curettage S/P hysterectomy S/P rotator cuff repair S/P total knee replacement Family History Father Myocardial infarction Hypertension Mother Stroke Hypertension Other Clotting disorder Social History Smoking and tobacco status: never smoked Second hand smoke exposure: Yes Alcohol intake: never Lives independently: Yes Household members: none Marital status: Number of children: 2 Current occupational status: retired and disabled History of recent travel: No Current gender identity: Female Physical Exam Const: COMMON NORMALS: patient oriented x3 and alert GENERAL APPEARANCE: cooperative, ill appearing and diaphoretic HENMT: COMMON NORMALS: normocephalic HEAD & SCALP: normocephalic MOUTH: moist mucous membranes abnormal Details: parched THROAT: posterior oropharynx normal and uvula midline Neck/C-Spine: COMMON NORMALS: supple GENERAL: Yes normal visual inspection Resp: COMMON NORMALS: normal respiratory effort, No retractions and No use of accessory muscles AUSCULTATION: crackles Laterality: bilateral (Base of the lungs) Cardio: COMMON NORMALS: regular rate, regular rhythm, S1 normal heart sound present, S2 normal heart sound present, No gallops present (Cardio), No clicks present (Cardio), No murmurs present (Cardio) and Peripheral pulses 2+ throughout RATE: regular rate RHYTHM: regular rhythm HEART SOUNDS: S1 normal heart sound present and S2 normal heart sound present PERIPHERAL PULSES: Peripheral pulses 2+ throughout GI: COMMON NORMALS: Normal to inspection, nondistended, normoactive bowel sounds present, Soft to palpation, non-tender and no masses PALPATION: Yes Soft to palpation : COMMON NORMALS: Yes no CVA tenderness BLADDER/KIDNEY EXAM: Yes no CVA tenderness Back/Pelvis: COMMON NORMALS: no CVA tenderness Extremity: COMMON NORMALS: normal to inspection Neuro: COMMON NORMALS: patient oriented x3 and moves all extremities SENSORIUM/ORIENTATION: Yes alert Skin: GENERAL SKIN EXAM: dry skin Course Vital Signs: Vital signs: Vital Signs Temperature 97.9 F 02/02/21 04:00 Pulse Rate 76 02/02/21 04:00 Respiratory Rate 16 02/02/21 04:00 Blood Pressure 110/74 02/02/21 05:02 Pulse Oximetry 90 02/02/21 04:00 MDM - SOB/Dyspnea MDM Narrative: Medical decision making narrative: I performed the initial history, exam and lab work up of pt. Pt was requiring 4L via NC and stating around 93% O2. She is not on any O2 at home. She tested positive for Covid-19. Chest xray-Bilateral interstitial pulmonary infiltrates which may be due to an interstitial viral pneumonia. ABG- pH 7.48, CO2 31.5, O2 79.6. Due to patien t's acute level of care and need for admission I went to talk to Dr. Chandler about patient case. He took over patient case at had patient admitted to hospitalist. Lab Data: Attestation: I reviewed the patient's lab results. Labs: Lab Results 02/01/21 02/01/21 02/01/21 Range/Units 08:24 08:24 08:24 WBC 6.9 (4.0-10.0) 10^3/ uL RBC 4.84 (4.1-5.3) 10^6/u L Hgb 13.1 (11.5-15.3) g/dL Hct 39.6 (37.0-47.0) % MCV 81.8 (81-99) fL MCH 27.1 L (28.0-34.0) pg MCHC 33.1 (30.0-36.0) g/dL RDW 14.0 (12.1-15.1) % Plt Count 243 (130-400) 10^3/c mm MPV 10.8 H (7.4-10.4) fL Neut % (Auto) 86.1 % Lymph % (Auto) 6.9 % [place] % (Auto) 4.2 % Eos % (Auto) 0.0 % Baso % (Auto) 0.3 % Neut # (Auto) 5.96 (1.8-7.7) 10^3/u L Lymph # (Auto) 0.5 L (0.8-4.8) 10^3/u L [place] # (Auto) 0.3 (0.2-0.9) 10^3/u L Eos # (Auto) 0.0 (0.0-0.8) 10^3/u L Baso # (Auto) 0.0 (0.0-0.1) 10^3/u L Nucleated RBC % (a uto) 0 % Nucleated RBCs # 0.0 /100WBC D-Dimer (0-0.59) ug/mIFE U Specimen Type Sample Site ABG pH (7.35-7.45) ABG pCO2 (35-45) mmHg ABG pO2 (80.0-100.0) mmH g ABG HCO3 (22-26) mmol/L ABG O2 Saturation ABG Base Excess (-2.0-2.0) mmol/ L Josias Test A-a O2 Gradient (5-10) mmHg Hematocrit (37-47) % Hgb O2 Saturation (95-100) % Carboxyhemoglobin (0.4-20.1) %THgb Methemoglobin (0.4-1.5) % Total Hemoglobin (12-16) g/dL Ionized Calcium (1.1-1.4) mmol/L O2 Delivery Device O2 Liters/Min % FiO2 % National Insurance Officer ID Sodium 137 (136-145) mmol/L Potassium 4.0 (3.5-5.1) mmol/L Chloride 103 (98-107) mmol/L Carbon Dioxide 22 (22-29) mmol/L Anion Gap 16.0 (5-19) BUN 15 (8-23) mg/dL Creatinine 0.9 (0.5-0.9) mg/dL GFR Calculation 63.0 L (90-130) mL/min Glucose 127 H (65-115) mg/dL Calculated Osmolal ity 286 (285-295) mOsm/k g Lactic Acid (0.5-2.2) mmol/L Calcium 7.6 L (8.5-10.5) mg/dL Iron (37-145) ug/dL TIBC mcg/dl % Saturation (20-50) % Unsat Iron Binding (112-347) ug/dL Ferritin 326 H (15-150) ng/mL Total Bilirubin 0.7 (0.15-1.2) mg/dL AST 81 H (0-32) U/L ALT 42 H (0-33) U/L Alkaline Phosphata se 78 (35-105) IU/L Troponin T Baselin e 12 H (0-10) ng/L Troponin T 120 Min [place] (0-10) ng/L Delta Troponin T (0-10) ABS# C-Reactive Protein 70.6 H (0.0-4.9) mg/L NT-Pro-B Natriuret Pep 107 (0-125) pg/mL Total Protein 5.5 L (6.6-8.7) g/dL Albumin 3.5 (3.5-5.2) g/dL Globulin 2.0 (1.3-4.6) g/dL Lipase 46 (13-60) U/L Vitamin B12 (232-1245) pg/mL Folate (4.8-37.3) ng/mL Procalcitonin 0.12 (0-0.5) ng/mL TSH (0.27-4.20) uIU/ mL SARS-CoV-2 Ag (Rap id) (Negative) 02/01/21 02/01/21 02/01/21 Range/Units 08:24 08:24 08:24 WBC (4.0-10.0) 10^3/ uL RBC (4.1-5.3) 10^6/u L Hgb (11.5-15.3) g/dL Hct (37.0-47.0) % MCV (81-99) fL MCH (28.0-34.0) pg MCHC (30.0-36.0) g/dL RDW (12.1-15.1) % Plt Count (130-400) 10^3/c mm MPV (7.4-10.4) fL Neut % (Auto) % Lymph % (Auto) % [place] % (Auto) % Eos % (Auto) % Baso % (Auto) % Neut # (Auto) (1.8-7.7) 10^3/u L Lymph # (Auto) (0.8-4.8) 10^3/u L [place] # (Auto) (0.2-0.9) 10^3/u L Eos # (Auto) (0.0-0.8) 10^3/u L Baso # (Auto) (0.0-0.1) 10^3/u L Nucleated RBC % (a uto) % Nucleated RBCs # /100WBC D-Dimer (0-0.59) ug/mIFE U Specimen Type Sample Site ABG pH (7.35-7.45) ABG pCO2 (35-45) mmHg ABG pO2 (80.0-100.0) mmH g ABG HCO3 (22-26) mmol/L ABG O2 Saturation ABG Base Excess (-2.0-2.0) mmol/ L Josias Test A-a O2 Gradient (5-10) mmHg Hematocrit (37-47) % Hgb O2 Saturation (95-100) % Carboxyhemoglobin (0.4-20.1) %THgb Methemoglobin (0.4-1.5) % Total Hemoglobin (12-16) g/dL Ionized Calcium (1.1-1.4) mmol/L O2 Delivery Device O2 Liters/Min % FiO2 % National Insurance Officer ID Sodium (136-145) mmol/L Potassium (3.5-5.1) mmol/L Chloride (98-107) mmol/L Carbon Dioxide (22-29) mmol/L Anion Gap (5-19) BUN (8-23) mg/dL Creatinine (0.5-0.9) mg/dL GFR Calculation (90-130) mL/min Glucose (65-115) mg/dL Calculated Osmolal ity (285-295) mOsm/k g Lactic Acid 1.5 (0.5-2.2) mmol/L Calcium (8.5-10.5) mg/dL Iron (37-145) ug/dL TIBC mcg/dl % Saturation (20-50) % Unsat Iron Binding (112-347) ug/dL Ferritin (15-150) ng/mL Total Bilirubin (0.15-1.2) mg/dL AST (0-32) U/L ALT (0-33) U/L Alkaline Phosphata se (35-105) IU/L Troponin T Baselin e (0-10) ng/L Troponin T 120 Min [place] (0-10) ng/L Delta Troponin T (0-10) ABS# C-Reactive Protein (0.0-4.9) mg/L NT-Pro-B Natriuret Pep (0-125) pg/mL Total Protein (6.6-8.7) g/dL Albumin (3.5-5.2) g/dL Globulin (1.3-4.6) g/dL Lipase (13-60) U/L Vitamin B12 256 (232-1245) pg/mL Folate 12.3 (4.8-37.3) ng/mL Procalcitonin (0-0.5) ng/mL TSH (0.27-4.20) uIU/ mL SARS-CoV-2 Ag (Rap id) (Negative) 02/01/21 02/01/21 02/01/21 Range/Units 08:27 08:34 08:34 WBC (4.0-10.0) 10^3/ uL RBC (4.1-5.3) 10^6/u L Hgb (11.5-15.3) g/dL Hct (37.0-47.0) % MCV (81-99) fL MCH (28.0-34.0) pg MCHC (30.0-36.0) g/dL RDW (12.1-15.1) % Plt Count (130-400) 10^3/c mm MPV (7.4-10.4) fL Neut % (Auto) % Lymph % (Auto) % [place] % (Auto) % Eos % (Auto) % Baso % (Auto) % Neut # (Auto) (1.8-7.7) 10^3/u L Lymph # (Auto) (0.8-4.8) 10^3/u L [place] # (Auto) (0.2-0.9) 10^3/u L Eos # (Auto) (0.0-0.8) 10^3/u L Baso # (Auto) (0.0-0.1) 10^3/u L Nucleated RBC % (a uto) % Nucleated RBCs # /100WBC D-Dimer (0-0.59) ug/mIFE U Specimen Type Sample Site ABG pH (7.35-7.45) ABG pCO2 (35-45) mmHg ABG pO2 (80.0-100.0) mmH g ABG HCO3 (22-26) mmol/L ABG O2 Saturation ABG Base Excess (-2.0-2.0) mmol/ L Josias Test A-a O2 Gradient (5-10) mmHg Hematocrit (37-47) % Hgb O2 Saturation (95-100) % Carboxyhemoglobin (0.4-20.1) %THgb Methemoglobin (0.4-1.5) % Total Hemoglobin (12-16) g/dL Ionized Calcium (1.1-1.4) mmol/L O2 Delivery Device O2 Liters/Min % FiO2 % National Insurance Officer ID Sodium (136-145) mmol/L Potassium (3.5-5.1) mmol/L Chloride (98-107) mmol/L Carbon Dioxide (22-29) mmol/L Anion Gap (5-19) BUN (8-23) mg/dL Creatinine (0.5-0.9) mg/dL GFR Calculation (90-130) mL/min Glucose (65-115) mg/dL Calculated Osmolal ity (285-295) mOsm/k g Lactic Acid (0.5-2.2) mmol/L Calcium (8.5-10.5) mg/dL Iron 17 L (37-145) ug/dL TIBC 223 mcg/dl % Saturation 7.6 L (20-50) % Unsat Iron Binding 206 (112-347) ug/dL Ferritin (15-150) ng/mL Total Bilirubin (0.15-1.2) mg/dL AST (0-32) U/L ALT (0-33) U/L Alkaline Phosphata se (35-105) IU/L Troponin T Baselin e (0-10) ng/L Troponin T 120 Min [place] (0-10) ng/L Delta Troponin T (0-10) ABS# C-Reactive Protein (0.0-4.9) mg/L NT-Pro-B Natriuret Pep (0-125) pg/mL Total Protein (6.6-8.7) g/dL Albumin (3.5-5.2) g/dL Globulin (1.3-4.6) g/dL Lipase (13-60) U/L Vitamin B12 (232-1245) pg/mL Folate (4.8-37.3) ng/mL Procalcitonin (0-0.5) ng/mL TSH 0.74 (0.27-4.20) uIU/ mL SARS-CoV-2 Ag (Rap id) Positive H (Negative) 02/01/21 02/01/21 02/01/21 Range/Units 08:37 10:50 11:08 WBC (4.0-10.0) 10^3/ uL RBC (4.1-5.3) 10^6/u L Hgb (11.5-15.3) g/dL Hct (37.0-47.0) % MCV (81-99) fL MCH (28.0-34.0) pg MCHC (30.0-36.0) g/dL RDW (12.1-15.1) % Plt Count (130-400) 10^3/c mm MPV (7.4-10.4) fL Neut % (Auto) % Lymph % (Auto) % [place] % (Auto) % Eos % (Auto) % Baso % (Auto) % Neut # (Auto) (1.8-7.7) 10^3/u L Lymph # (Auto) (0.8-4.8) 10^3/u L [place] # (Auto) (0.2-0.9) 10^3/u L Eos # (Auto) (0.0-0.8) 10^3/u L Baso # (Auto) (0.0-0.1) 10^3/u L Nucleated RBC % (a uto) % Nucleated RBCs # /100WBC D-Dimer 1.76 H (0-0.59) ug/mIFE U Specimen Type Arterial Sample Site Brachial, right ABG pH 7.48 H (7.35-7.45) ABG pCO2 31.5 L (35-45) mmHg ABG pO2 79.6 L (80.0-100.0) mmH g ABG HCO3 23.7 (22-26) mmol/L ABG O2 Saturation 96.9 ABG Base Excess 1.0 (-2.0-2.0) mmol/ L Josias Test N/a A-a O2 Gradient 14.2 H (5-10) mmHg Hematocrit 43.1 (37-47) % Hgb O2 Saturation 95.9 (95-100) % Carboxyhemoglobin 0.7 (0.4-20.1) %THgb Methemoglobin 0.2 L (0.4-1.5) % Total Hemoglobin 14.1 (12-16) g/dL Ionized Calcium 1.1 (1.1-1.4) mmol/L O2 Delivery Device Nc O2 Liters/Min 3.0 % FiO2 32.0 % National Insurance Officer ID glc Sodium 140.0 (136-145) mmol/L Potassium 3.8 (3.5-5.1) mmol/L Chloride (98-107) mmol/L Carbon Dioxide (22-29) mmol/L Anion Gap (5-19) BUN (8-23) mg/dL Creatinine (0.5-0.9) mg/dL GFR Calculation (90-130) mL/min Glucose 127.0 H (65-115) mg/dL Calculated Osmolal ity (285-295) mOsm/k g Lactic Acid (0.5-2.2) mmol/L Calcium (8.5-10.5) mg/dL Iron (37-145) ug/dL TIBC mcg/dl % Saturation (20-50) % Unsat Iron Binding (112-347) ug/dL Ferritin (15-150) ng/mL Total Bilirubin (0.15-1.2) mg/dL AST (0-32) U/L ALT (0-33) U/L Alkaline Phosphata se (35-105) IU/L Troponin T Baselin e (0-10) ng/L Troponin T 120 Min [place] 10.62 H (0-10) ng/L Delta Troponin T -1.38 L (0-10) ABS# C-Reactive Protein (0.0-4.9) mg/L NT-Pro-B Natriuret Pep (0-125) pg/mL Total Protein (6.6-8.7) g/dL Albumin (3.5-5.2) g/dL Globulin (1.3-4.6) g/dL Lipase (13-60) U/L Vitamin B12 (232-1245) pg/mL Folate (4.8-37.3) ng/mL Procalcitonin (0-0.5) ng/mL TSH (0.27-4.20) uIU/ mL SARS-CoV-2 Ag (Rap id) (Negative) Imaging Data^: CXR: Attestation: I personally reviewed and interpreted this imaging study as follows: Radiologist's impression: [address] [address] XRay Report Signed Patient: Manuela Julien Unit #: [id number] : 1955 Age/Sex: 65 / F ADM Date: 02/01/21 Loc: ER Room/Bed: Attending Dr: Ordering Provider/Ordering MD: Latrell Cabrera Date of Service: 02/01/21 Procedure(s): XR chest 1V portable [id number] Accession Number(s): [id number] Report Number: [id number] PROCEDURE INFORMATION: Exam: XR Chest Exam date and time: 02/01/2021 7:59 AM Age: 65 years old Clinical indication: Shortness of breath; Additional info: SOB TECHNIQUE: Imaging protocol: XR of the chest. Views: 1 view. COMPARISON: CR XR chest 1V portable [id number] 07/08/2020 8:57 AM FINDINGS: Lungs: Bilateral interstitial pulmonary infiltrates are present which may be due to a interstitial pneumonia. Pleural spaces: Unremarkable. No pleural effusion. No pneumothorax. Heart/Mediastinum: Unremarkable. No cardiomegaly. Bones/joints: Unremarkable. XR/XR chest 1V portable [id number] IMPRESSION: Bilateral interstitial pulmonary infiltrates which may be due to an interstitial viral pneumonia. Dictated By: Sterling Sheikh Signed By: Sterling Sheikh Signed Date/Time: 02/01/21 1043 DD/ 1041 Discharge Plan Discharge Patient Disposition: Admitted As Inpatient Admit Provider: Jeffrey Wilson Clinical Impression: COVID-19, Hypoxia Condition: Stable Coding Level of Care Code ED Home Care Aide for Chg Fwd Exam Comprehensive Documented by User: Jonas Chandler MD 02/02/21 00:56 HPI - SOB/Dyspnea General: Chief Complaint: Shortness of Breath/Dyspnea Stated Complaint: NON PRODUCTIVE COUGH Time Seen by Provider: 02/01/21 07:56 PFSH ED PFSH: Medical History Bleeding per rectum Cervical spondylarthritis Chronic right hip pain Cough with hemoptysis CVA (cerebral vascular accident) Demyelinating disease Diverticulitis Diverticulosis Essential (primary) hypertension Flank pain Fourth nerve palsy of left eye GERD (gastroesophageal reflux disease) H/O adenomatous polyp of colon H/O deep venous thrombosis H/O: GI bleed Healed or old pulmonary embolism Hiatal hernia Hypokalemia Morbid obesity with BMI of 40.0-44.9, adult Myocardial infarction LOCO (obstructive sleep apnea) LOCO on CPAP PFO (patent foramen ovale) PND (paroxysmal nocturnal dyspnea) Sixth nerve palsy of right eye Sleep apnea in adult TIA (transient ischemic attack) Surgical History History of esophagogastroduodenoscopy (EGD) (~08/2019) S/P cholecystectomy S/P colonoscopy S/P dilatation and curettage S/P hysterectomy S/P rotator cuff repair S/P total knee replacement Family History Father Myocardial infarction Hypertension Mother Stroke Hypertension Other Clotting disorder Social History Smoking and tobacco status: never smoked Second hand smoke exposure: Yes Alcohol intake: never Lives independently: Yes Household members: none Marital status: Number of children: 2 Current occupational status: retired and disabled History of recent travel: No Current gender identity: Female Course Vital Signs: Vital signs: Vital Signs Temperature 97.9 F 02/02/21 04:00 Pulse Rate 76 02/02/21 04:00 Respiratory Rate 16 02/02/21 04:00 Blood Pressure 110/74 02/02/21 05:02 Pulse Oximetry 90 02/02/21 04:00 MDM - SOB/Dyspnea MDM Narrative: Medical decision making narrative: The patient tested positive for Covid and has an oxygen requirement of 4 L/min. She also also febrile and was given Tylenol. Discussed with Dr. Dennis who accepted for admission. Lab Data: Labs: Lab Results 02/01/21 02/01/21 02/01/21 Range/Units 08:24 08:24 08:24 WBC 6.9 (4.0-10.0) 10^3/ uL RBC 4.84 (4.1-5.3) 10^6/u L Hgb 13.1 (11.5-15.3) g/dL Hct 39.6 (37.0-47.0) % MCV 81.8 (81-99) fL MCH 27.1 L (28.0-34.0) pg MCHC 33.1 (30.0-36.0) g/dL RDW 14.0 (12.1-15.1) % Plt Count 243 (130-400) 10^3/c mm MPV 10.8 H (7.4-10.4) fL Neut % (Auto) 86.1 % Lymph % (Auto) 6.9 % [place] % (Auto) 4.2 % Eos % (Auto) 0.0 % Baso % (Auto) 0.3 % Neut # (Auto) 5.96 (1.8-7.7) 10^3/u L Lymph # (Auto) 0.5 L (0.8-4.8) 10^3/u L [place] # (Auto) 0.3 (0.2-0.9) 10^3/u L Eos # (Auto) 0.0 (0.0-0.8) 10^3/u L Baso # (Auto) 0.0 (0.0-0.1) 10^3/u L Nucleated RBC % (a uto) 0 % Nucleated RBCs # 0.0 /100WBC D-Dimer (0-0.59) ug/mIFE U Specimen Type Sample Site ABG pH (7.35-7.45) ABG pCO2 (35-45) mmHg ABG pO2 (80.0-100.0) mmH g ABG HCO3 (22-26) mmol/L ABG O2 Saturation ABG Base Excess (-2.0-2.0) mmol/ L Josias Test A-a O2 Gradient (5-10) mmHg Hematocrit (37-47) % Hgb O2 Saturation (95-100) % Carboxyhemoglobin (0.4-20.1) %THgb Methemoglobin (0.4-1.5) % Total Hemoglobin (12-16) g/dL Ionized Calcium (1.1-1.4) mmol/L O2 Delivery Device O2 Liters/Min % FiO2 % National Insurance Officer ID Sodium 137 (136-145) mmol/L Potassium 4.0 (3.5-5.1) mmol/L Chloride 103 (98-107) mmol/L Carbon Dioxide 22 (22-29) mmol/L Anion Gap 16.0 (5-19) BUN 15 (8-23) mg/dL Creatinine 0.9 (0.5-0.9) mg/dL GFR Calculation 63.0 L (90-130) mL/min Glucose 127 H (65-115) mg/dL Calculated Osmolal ity 286 (285-295) mOsm/k g Lactic Acid (0.5-2.2) mmol/L Calcium 7.6 L (8.5-10.5) mg/dL Iron (37-145) ug/dL TIBC mcg/dl % Saturation (20-50) % Unsat Iron Binding (112-347) ug/dL Ferritin 326 H (15-150) ng/mL Total Bilirubin 0.7 (0.15-1.2) mg/dL AST 81 H (0-32) U/L ALT 42 H (0-33) U/L Alkaline Phosphata se 78 (35-105) IU/L Troponin T Baselin e 12 H (0-10) ng/L Troponin T 120 Min [place] (0-10) ng/L Delta Troponin T (0-10) ABS# C-Reactive Protein 70.6 H (0.0-4.9) mg/L NT-Pro-B Natriuret Pep 107 (0-125) pg/mL Total Protein 5.5 L (6.6-8.7) g/dL Albumin 3.5 (3.5-5.2) g/dL Globulin 2.0 (1.3-4.6) g/dL Lipase 46 (13-60) U/L Vitamin B12 (232-1245) pg/mL Folate (4.8-37.3) ng/mL Procalcitonin 0.12 (0-0.5) ng/mL TSH (0.27-4.20) uIU/ mL SARS-CoV-2 Ag (Rap id) (Negative) 02/01/21 02/01/21 02/01/21 Range/Units 08:24 08:24 08:24 WBC (4.0-10.0) 10^3/ uL RBC (4.1-5.3) 10^6/u L Hgb (11.5-15.3) g/dL Hct (37.0-47.0) % MCV (81-99) fL MCH (28.0-34.0) pg MCHC (30.0-36.0) g/dL RDW (12.1-15.1) % Plt Count (130-400) 10^3/c mm MPV (7.4-10.4) fL Neut % (Auto) % Lymph % (Auto) % [place] % (Auto) % Eos % (Auto) % Baso % (Auto) % Neut # (Auto) (1.8-7.7) 10^3/u L Lymph # (Auto) (0.8-4.8) 10^3/u L [place] # (Auto) (0.2-0.9) 10^3/u L Eos # (Auto) (0.0-0.8) 10^3/u L Baso # (Auto) (0.0-0.1) 10^3/u L Nucleated RBC % (a uto) % Nucleated RBCs # /100WBC D-Dimer (0-0.59) ug/mIFE U Specimen Type Sample Site ABG pH (7.35-7.45) ABG pCO2 (35-45) mmHg ABG pO2 (80.0-100.0) mmH g ABG HCO3 (22-26) mmol/L ABG O2 Saturation ABG Base Excess (-2.0-2.0) mmol/ L Josias Test A-a O2 Gradient (5-10) mmHg Hematocrit (37-47) % Hgb O2 Saturation (95-100) % Carboxyhemoglobin (0.4-20.1) %THgb Methemoglobin (0.4-1.5) % Total Hemoglobin (12-16) g/dL Ionized Calcium (1.1-1.4) mmol/L O2 Delivery Device O2 Liters/Min % FiO2 % National Insurance Officer ID Sodium (136-145) mmol/L Potassium (3.5-5.1) mmol/L Chloride (98-107) mmol/L Carbon Dioxide (22-29) mmol/L Anion Gap (5-19) BUN (8-23) mg/dL Creatinine (0.5-0.9) mg/dL GFR Calculation (90-130) mL/min Glucose (65-115) mg/dL Calculated Osmolal ity (285-295) mOsm/k g Lactic Acid 1.5 (0.5-2.2) mmol/L Calcium (8.5-10.5) mg/dL Iron (37-145) ug/dL TIBC mcg/dl % Saturation (20-50) % Unsat Iron Binding (112-347) ug/dL Ferritin (15-150) ng/mL Total Bilirubin (0.15-1.2) mg/dL AST (0-32) U/L ALT (0-33) U/L Alkaline Phosphata se (35-105) IU/L Troponin T Baselin e (0-10) ng/L Troponin T 120 Min [place] (0-10) ng/L Delta Troponin T (0-10) ABS# C-Reactive Protein (0.0-4.9) mg/L NT-Pro-B Natriuret Pep (0-125) pg/mL Total Protein (6.6-8.7) g/dL Albumin (3.5-5.2) g/dL Globulin (1.3-4.6) g/dL Lipase (13-60) U/L Vitamin B12 256 (232-1245) pg/mL Folate 12.3 (4.8-37.3) ng/mL Procalcitonin (0-0.5) ng/mL TSH (0.27-4.20) uIU/ mL SARS-CoV-2 Ag (Rap id) (Negative) 02/01/21 02/01/21 02/01/21 Range/Units 08:27 08:34 08:34 WBC (4.0-10.0) 10^3/ uL RBC (4.1-5.3) 10^6/u L Hgb (11.5-15.3) g/dL Hct (37.0-47.0) % MCV (81-99) fL MCH (28.0-34.0) pg MCHC (30.0-36.0) g/dL RDW (12.1-15.1) % Plt Count (130-400) 10^3/c mm MPV (7.4-10.4) fL Neut % (Auto) % Lymph % (Auto) % [place] % (Auto) % Eos % (Auto) % Baso % (Auto) % Neut # (Auto) (1.8-7.7) 10^3/u L Lymph # (Auto) (0.8-4.8) 10^3/u L [place] # (Auto) (0.2-0.9) 10^3/u L Eos # (Auto) (0.0-0.8) 10^3/u L Baso # (Auto) (0.0-0.1) 10^3/u L Nucleated RBC % (a uto) % Nucleated RBCs # /100WBC D-Dimer (0-0.59) ug/mIFE U Specimen Type Sample Site ABG pH (7.35-7.45) ABG pCO2 (35-45) mmHg ABG pO2 (80.0-100.0) mmH g ABG HCO3 (22-26) mmol/L ABG O2 Saturation ABG Base Excess (-2.0-2.0) mmol/ L Josias Test A-a O2 Gradient (5-10) mmHg Hematocrit (37-47) % Hgb O2 Saturation (95-100) % Carboxyhemoglobin (0.4-20.1) %THgb Methemoglobin (0.4-1.5) % Total Hemoglobin (12-16) g/dL Ionized Calcium (1.1-1.4) mmol/L O2 Delivery Device O2 Liters/Min % FiO2 % National Insurance Officer ID Sodium (136-145) mmol/L Potassium (3.5-5.1) mmol/L Chloride (98-107) mmol/L Carbon Dioxide (22-29) mmol/L Anion Gap (5-19) BUN (8-23) mg/dL Creatinine (0.5-0.9) mg/dL GFR Calculation (90-130) mL/min Glucose (65-115) mg/dL Calculated Osmolal ity (285-295) mOsm/k g Lactic Acid (0.5-2.2) mmol/L Calcium (8.5-10.5) mg/dL Iron 17 L (37-145) ug/dL TIBC 223 mcg/dl % Saturation 7.6 L (20-50) % Unsat Iron Binding 206 (112-347) ug/dL Ferritin (15-150) ng/mL Total Bilirubin (0.15-1.2) mg/dL AST (0-32) U/L ALT (0-33) U/L Alkaline Phosphata se (35-105) IU/L Troponin T Baselin e (0-10) ng/L Troponin T 120 Min [place] (0-10) ng/L Delta Troponin T (0-10) ABS# C-Reactive Protein (0.0-4.9) mg/L NT-Pro-B Natriuret Pep (0-125) pg/mL Total Protein (6.6-8.7) g/dL Albumin (3.5-5.2) g/dL Globulin (1.3-4.6) g/dL Lipase (13-60) U/L Vitamin B12 (232-1245) pg/mL Folate (4.8-37.3) ng/mL Procalcitonin (0-0.5) ng/mL TSH 0.74 (0.27-4.20) uIU/ mL SARS-CoV-2 Ag (Rap id) Positive H (Negative) 02/01/21 02/01/21 02/01/21 Range/Units 08:37 10:50 11:08 WBC (4.0-10.0) 10^3/ uL RBC (4.1-5.3) 10^6/u L Hgb (11.5-15.3) g/dL Hct (37.0-47.0) % MCV (81-99) fL MCH (28.0-34.0) pg MCHC (30.0-36.0) g/dL RDW (12.1-15.1) % Plt Count (130-400) 10^3/c mm MPV (7.4-10.4) fL Neut % (Auto) % Lymph % (Auto) % [place] % (Auto) % Eos % (Auto) % Baso % (Auto) % Neut # (Auto) (1.8-7.7) 10^3/u L Lymph # (Auto) (0.8-4.8) 10^3/u L [place] # (Auto) (0.2-0.9) 10^3/u L Eos # (Auto) (0.0-0.8) 10^3/u L Baso # (Auto) (0.0-0.1) 10^3/u L Nucleated RBC % (a uto) % Nucleated RBCs # /100WBC D-Dimer 1.76 H (0-0.59) ug/mIFE U Specimen Type Arterial Sample Site Brachial, right ABG pH 7.48 H (7.35-7.45) ABG pCO2 31.5 L (35-45) mmHg ABG pO2 79.6 L (80.0-100.0) mmH g ABG HCO3 23.7 (22-26) mmol/L ABG O2 Saturation 96.9 ABG Base Excess 1.0 (-2.0-2.0) mmol/ L Josias Test N/a A-a O2 Gradient 14.2 H (5-10) mmHg Hematocrit 43.1 (37-47) % Hgb O2 Saturation 95.9 (95-100) % Carboxyhemoglobin 0.7 (0.4-20.1) %THgb Methemoglobin 0.2 L (0.4-1.5) % Total Hemoglobin 14.1 (12-16) g/dL Ionized Calcium 1.1 (1.1-1.4) mmol/L O2 Delivery Device Nc O2 Liters/Min 3.0 % FiO2 32.0 % National Insurance Officer ID glc Sodium 140.0 (136-145) mmol/L Potassium 3.8 (3.5-5.1) mmol/L Chloride (98-107) mmol/L Carbon Dioxide (22-29) mmol/L Anion Gap (5-19) BUN (8-23) mg/dL Creatinine (0.5-0.9) mg/dL GFR Calculation (90-130) mL/min Glucose 127.0 H (65-115) mg/dL Calculated Osmolal ity (285-295) mOsm/k g Lactic Acid (0.5-2.2) mmol/L Calcium (8.5-10.5) mg/dL Iron (37-145) ug/dL TIBC mcg/dl % Saturation (20-50) % Unsat Iron Binding (112-347) ug/dL Ferritin (15-150) ng/mL Total Bilirubin (0.15-1.2) mg/dL AST (0-32) U/L ALT (0-33) U/L Alkaline Phosphata se (35-105) IU/L Troponin T Baselin e (0-10) ng/L Troponin T 120 Min [place] 10.62 H (0-10) ng/L Delta Troponin T -1.38 L (0-10) ABS# C-Reactive Protein (0.0-4.9) mg/L NT-Pro-B Natriuret Pep (0-125) pg/mL Total Protein (6.6-8.7) g/dL Albumin (3.5-5.2) g/dL Globulin (1.3-4.6) g/dL Lipase (13-60) U/L Vitamin B12 (232-1245) pg/mL Folate (4.8-37.3) ng/mL Procalcitonin (0-0.5) ng/mL TSH (0.27-4.20) uIU/ mL SARS-CoV-2 Ag (Rap id) (Negative) Discharge Plan Discharge Patient Disposition: Admitted As Inpatient Admit Provider: Jeffrey Wilson Clinical Impression: COVID-19, Hypoxia Condition: Stable Coding Level of Care Code ED Home Care Aide for Chg Fwd Exam Comprehensive
--- NOTE | 2021-02-01 07:59 | XRR_ITS ---
PROCEDURE INFORMATION: Exam: XR Chest Exam date and time: 02/01/2021 7:59 AM Age: 65 years old Clinical indication: Shortness of breath; Additional info: SOB TECHNIQUE: Imaging protocol: XR of the chest. Views: 1 view. COMPARISON: CR XR chest 1V portable [id number] 07/08/2020 8:57 AM FINDINGS: Lungs: Bilateral interstitial pulmonary infiltrates are present which may be due to a interstitial pneumonia. Pleural spaces: Unremarkable. No pleural effusion. No pneumothorax. Heart/Mediastinum: Unremarkable. No cardiomegaly. Bones/joints: Unremarkable. XR/XR chest 1V portable [id number] IMPRESSION: Bilateral interstitial pulmonary infiltrates which may be due to an interstitial viral pneumonia.
[2021-02-01 08:41] LABS: Basophils % 0.3 %; Hematocrit 39.6 % (37.0-47.0); Hemoglobin 13.1 g/dL (11.5-15.3); Lymphocytes # 0.5 10^3/uL (0.8-4.8); Lymphocytes % 6.9 %; Mean Corpuscular HGB Conc 33.1 g/dL (30.0-36.0); Mean Corpuscular Hemoglobin 27.1 pg (28.0-34.0); Mean Corpuscular Volume 81.8 fL (81-99); Mean Platelet Volume 10.8 fL (7.4-10.4); Monocytes # 0.3 10^3/uL (0.2-0.9); Monocytes % 4.2 %; Neutrophils # 5.96 10^3/uL (1.8-7.7); Neutrophils % 86.1 %; Nucleated Red Blood Cells % 0 %; Platelet Count 243 10^3/cmm (130-400); Red Blood Count 4.84 10^6/uL (4.1-5.3); White Blood Count 6.9 10^3/uL (4.0-10.0)
[2021-02-01 08:47] LABS: ABG PCO2 31.5 mmHg (35-45); ABG PH Result 7.48 (7.35-7.45); Alveolar-Arterial Oxygen Gradi 14.2 mmHg (5-10); Arterial Blood Gas Hematocrit 43.1 % (37-47); Blood Gas Operator Identificat glc; Blood Gas Sample Site Brachial, right; Blood Gas Sample Type Arterial; Carboxyhemoglobin 0.7 %THgb (0.4-20.1); HCO3 ABG 23.7 mmol/L (22-26); HGB O2 Sat 95.9 % (95-100); Ionized Calcium Level - ABG 1.1 mmol/L (1.1-1.4); Methemoglobin 0.2 % (0.4-1.5); Oxygen Device NC; Oxygen Saturation ABG 96.9; PO2 ABG 79.6 mmHg (80.0-100.0); Potassium Level - ABG 3.8 mmol/L (3.5-5.0); Total Hemoglobin 14.1 g/dL (12-16)
[2021-02-01 08:57] LABS: Lactic Sepsis W/Reflex 1.5 mmol/L (0.5-2.2); Troponin(5th) Baseline 12 ng/L (0-10)
[2021-02-01 09:06] LABS: NT Pro B Type Natriuretic Pept 107 pg/mL (0-125); Procalcitonin 0.12 ng/mL (0-0.5)
[2021-02-01 09:18] LABS: Alanine Aminotransferase 42 U/L (0-33); Albumin Level 3.5 g/dL (3.5-5.2); Alkaline Phosphatase 78 IU/L (35-105); Aspartate Amino Transferase 81 U/L (0-32); Blood Urea Nitrogen 15 mg/dL (8-23); C Reactive Protein 70.6 mg/L (0.0-4.9); Calcium 7.6 mg/dL (8.5-10.5); Carbon Dioxide 22 mmol/L (22-29); Chloride 103 mmol/L (98-107); Ferritin 326 ng/mL (15-150); Glucose 127 mg/dL (65-115); Lipase 46 U/L (13-60); Osmolality Calculated 286 mOsm/kg (285-295); Sodium 137 mmol/L (136-145); Total Bilirubin 0.7 mg/dL (0.15-1.2); Total Protein 5.5 g/dL (6.6-8.7)
--- NOTE | 2021-02-01 09:59 | ECG_ITS ---
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 Measurements Intervals [place] Rate: 92 P: 18 SD: 128 QRS: 14 QRSD: 84 T: 8 QT: 316 QTc: 392 Interpretive Statements SINUS RHYTHM LOW QRS VOLTAGE IN PRECORDIAL LEADS [QRS DEFLECTION < 1.0 mV IN CHEST LEADS] Compared to ECG 12/23/2019 10:55:04 Sinus tachycardia no longer present T-wave abnormality no longer present Electronically Signed On 02-01-2021 20:19:24 CDT by Elizabeth Whitman M.D. [email or web address] sunflower county hospitalTraansmissioncleveland clinic [facility].BrightArch/store/NU/[id number] f
[2021-02-01 10:42] LABS: SARS Covid-2 Antigen Positive (Negative)
[2021-02-01] MEDS: acetaminophen 500 mg Tablet 1000 MG PO (11:00)
[2021-02-01 11:52] LABS: Troponin 5 2HR 10.62 ng/L (0-10)
[2021-02-01 12:04] LABS: Troponin 5 2HR Delta -1.38 ABS# (0-10)
[2021-02-01] MEDS: albuterol 8 gm MDI 2 PUFF INHALATION ×2 (13:56)
--- NOTE | 2021-02-01 13:59 | ECG_ITS ---
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 Measurements Intervals [place] Rate: 79 P: 40 MA: 136 QRS: 25 QRSD: 91 T: 19 QT: 351 QTc: 403 Interpretive Statements SINUS RHYTHM LOW QRS VOLTAGE IN PRECORDIAL LEADS [QRS DEFLECTION < 1.0 mV IN CHEST LEADS] Compared to ECG 02/01/2021 11:08:50 No significant changes Electronically Signed On 02-01-2021 20:22:35 CDT by Elizabeth Whitman M.D. [email or web address] Populimagruder memorial [email or web address].[email or web address]/[id number]
[2021-02-01 14:53] LABS: Troponin 5 6HR 10.99 ng/L (0-10)
[2021-02-01 15:13] LABS: Troponin 5 6HR Delta -1.01 ng/L (0-12)
--- NOTE | 2021-02-01 15:34 | CTR_ITS ---
PROCEDURE INFORMATION: Exam: CTA Chest With Contrast Exam date and time: 02/01/2021 3:34 PM Age: 65 years old Clinical indication: Cough and shortness of breath; Patient HX: Covid+ w cough SOB and elev d-dimer TECHNIQUE: Imaging protocol: Computed tomographic angiography of the chest with contrast. 3D rendering (Not supervised by radiologist): MIP and/or 3D reconstructed images were created by the technologist. Radiation optimization: All CT scans at this facility use at least one of these dose optimization techniques: automated exposure control; mA and/or kV adjustment per patient size (includes targeted exams where dose is matched to clinical indication); or iterative reconstruction. Contrast material: OMNI 350; Contrast volume: 67 ml; Contrast route: INTRAVENOUS (IV); COMPARISON: CT angio chest PE protcl [id number] 12/23/2019 11:35 AM RADIATION DOSE METRICS: Total DLP (mGy-cm): 545.4 FINDINGS: Pulmonary arteries: Normal. No pulmonary emboli. Aorta: Unremarkable. No aortic aneurysm. No aortic dissection. Great vessels off aortic arch: Calcification of the thoracic aorta and/or great vessels consistent with atherosclerotic vessel disease. Lungs: Geographic bilateral ground-glass opacities with some crazy paving and consolidation and air bronchograms consistent with moderate to severe bilateral Covid-19 pneumonia versus other viral pneumonia. Pleural spaces: Unremarkable. No pneumothorax. No pleural effusion. Heart: Unremarkable. No cardiomegaly. No pericardial effusion. Lymph nodes: Mild mediastinal adenopathy which could be reactive. Gallbladder and bile ducts: Stable cholecystectomy. Bones/joints: Dextroscoliosis. Soft tissues: Unremarkable. CT/CT angio chest PE protcl [id number] IMPRESSION: 1. Geographic bilateral ground-glass opacities with some crazy paving and consolidation and air bronchograms consistent with moderate to severe bilateral Covid-19 pneumonia versus other viral pneumonia. 2. Mild mediastinal adenopathy which could be reactive. Radiation Dose CTDIVOL = (mGy): DLP = 545.4 (mGy-cm)
--- NOTE | 2021-02-01 15:34 | USCV_ITS ---
Anaya Manuela Age: 65 Gender: F : 1955 Exam Date: 02/01/2021 15:58 Ordering Phys: Jeffrey Wilson MD Technologist: Samra Guadalupe Exam Location: [facility] Indication: SOB, HTN, COVID + BP: 124 / 80 HR: 81 Rhythm: Sinus Technical Quality: Technically difficult study MEASUREMENTS (Male / Female) Normal Values 2D ECHO LV Diastolic Diameter PLAX 3.6 cm 4.2 - 5.9 / 3.9 - 5.3 cm LV Systolic Diameter PLAX 2.2 cm LV Chamber Size 2.9 cm IVS Diastolic Thickness 1.3 cm 0.6 - 1.0 / 0.6 - 0.9 cm IVS Systolic Thickness 1.5 cm LVPW Diastolic Thickness 0.8 cm 0.6 - 1.0 / 0.6 - 0.9 cm LVPW Systolic Thickness 1.3 cm RV Chamber Size 2.3 cm LV Ejection Fraction 2D Teich 70.4 % LV Ejection Fraction MOD 2C 71.0 % LV Ejection Fraction 2C AL 72.0 % LA Diameter 3.5 cm LA Width 2.5 cm RA Width 2.9 cm RA Height 3.0 cm M-MODE LV Diastolic Diameter MM 4.4 cm 4.2 - 5.9 / 3.9 - 5.3 cm LV Systolic Diameter MM 2.6 cm LV Ejection Fraction MM Teich 70.9 % IVS Diastolic Thickness MM 1.4 cm 0.6 - 1.0 / 0.6 - 0.9 cm IVS Systolic Thickness MM 1.7 cm LVPW Diastolic Thickness MM 1.1 cm 0.6 - 1.0 / 0.6 - 0.9 cm LVPW Systolic Thickness MM 1.2 cm RV Diastolic Diameter MM 0.7 cm Aortic Annulus Diameter 3.1 cm LA Ao Ratio MM 1.1 MV E Point Septal Separation 0.5 cm DOPPLER AV Peak Velocity 97.0 cm/s LVOT Peak Velocity 64.0 cm/s MV Area PHT 4.4 cm squared Mitral E to A Ratio 1.0 MV E' Velocity 41.0 cm/s Mitral E to MV E' Ratio 11.3 Mitral E to LV E' Lateral Ratio 12.0 Mitral E to LV E' Septal Ratio 10.7 TV Peak E Velocity 54.0 cm/s Right Atrial Pressure 3.0 mmHg PV Peak Velocity 76.0 cm/s RV Acceleration Time 0.1 s RV Ejection Time 0.3 s RV AcT/ET 0.3 FINDINGS Left Ventricle Normal left ventricular size and systolic function, EF 66 %. No regional wall motion abnormalities. Mild left ventricular hypertrophy. Right Ventricle The right ventricle is normal in size and function. Right Atrium The right atrium is normal in size. Left Atrium The left atrium is normal in size. Mitral Valve No gross abnormalities noted Aortic Valve No gross abnormalities noted Tricuspid Valve Tricuspid valve not well visualized. Pulmonic Valve Pulmonic valve not well visualized. Pericardium Normal pericardium without effusion. Aorta Normal ascending aorta dimension. CONCLUSIONS Normal left ventricular size and systolic function, EF 66 %. No regional wall motion abnormalities. Mild left ventricular hypertrophy. No significant stenotic or related lesions. Possibly normal cardiac chamber sizes. No pericardial effusion. Technically difficult study because of the poor ultrasonic window(No apical views) Dr Elizabeth Whitman MD FACC (Electronically Signed) Final Date: 01 February 2021 19:25 S
[2021-02-01 15:53] LABS: D Dimer 1.76 ug/mIFEU (0-0.59)
[2021-02-01 15:58] LABS: Iron 17 ug/dL (37-145); Percent Saturation 7.6 % (20-50); Total Iron Binding Capacity 223 mcg/dl; Unsaturated Iron Binding 206 ug/dL (112-347)
--- NOTE | 2021-02-01 16:05 | PM.HP ---
Providers/Chief Complaint Primary Care Provider: Noah Topete MD Chief Complaint: NON PRODUCTIVE COUGH History of Present Illness Manuela Julien is a 65 year old female with past medical history of asthma, and multiple other history as below presented to the ER today because of ongoing myalgias, difficulty in breathing, fever and diarrhea for last 1 week. Patient states her symptoms started on 22 January 2021. He states prior to symptoms she was moving houses and the person who was trying to help her in moving houses was smoking. After inhaling smoke or difficulty in breathing started and she thought it was because of trigger from asthma. Patient was tested for COVID-19 antigen and brought in [place] on 0 was reported negative. Today because her symptoms are getting worse along with dizziness so she presented to the ER where she was tested positive for COVID-19. Patient states she has been having on and off diarrhea for last 10 days. She states her bowel movements are mixed with blood, is chocolatey pasty in consistency. She denies having any similar symptoms in the past. She has not received Covid vaccine because she is allergic to egg. Her blood work in the ER showed white no 6.9, hemoglobin of 13, D-dimer 1.76, chloride of 103, sodium of 137, creatinine of 0.9, calcium of 7.6, AST/ALT of 81/42. Chest x-ray was done which was reported as below. Review of Systems General: Reports: 10 or more systems reviewed and unremarkable except in HPI and below Const: Denies: fever(s), chills, body aches, change in appetite, change in weight, malaise, night sweats, diaphoresis, change in sleep pattern, daytime sleepiness or snoring Eyes: Denies: change in vision, blurry vision, photophobia, eye discomfort or eye discharge ENMT: Denies: throat pain, enlarged tonsils, hoarseness, mouth pain, oral sores, dry mouth, tinnitus, nasal congestion or post nasal drip Card: Denies: chest pain, palpitations, irregular heart rhythm, edema, swelling of feet/ankles, lightheadedness, syncope, pre-syncope, dyspnea on exertion, orthopnea, leg pain with exertion or acrocyanosis Resp: Denies: dyspnea, productive cough, non-productive cough, wheezing, stridor, pain on inspiration, change in phlegm color, hemoptysis or chest congestion GI: Denies: abdominal pain, nausea, vomiting, hematemesis, coffee ground emesis, dysphagia, heartburn, diarrhea, constipation, bloating, GI cramping, change in bowel habits, pain on defecation, hematochezia or melena : Denies: flank pain, dysuria, urinary frequency, urinary urgency, urinary hesitancy, nocturia or hematuria Musc: Denies: neck pain, back pain, extremity pain, joint pain, joint swelling, joint redness, joint stiffness or limited range of motion Neuro: Denies: headache(s), numbness in extremities, weakness in extremities, sensory changes, lack of coordination, difficulty walking, frequent falls, dizziness, vertigo, confusion, Slurred speech present, difficulty communicating thoughts or seizure-like activity Psych: Denies: anxiety, depression, mood swings, panic attacks, hopelessness or irritability Endo: Denies: polyuria, polydipsia, tired all the time, cold intolerance, excessive sweating, flushing or heat intolerance Javier/Lymph: Denies: easy bruising or easy bleeding All/Imm: Denies: tongue swelling, facial swelling or acute wheezing Medications/Allergies Home Medications Medication Instructions Recorded Confirmed Last Taken Type acetaminophen 325 mg tablet 325 - 650 mg PO PRN tab 08/14/19 02/01/21 09/23/20 History docusate sodium 100 mg capsule 100 mg PO BID@08/14/19 02/01/21 02/01/21 History Mylanta Gas Minis See Rx Instructions .ROUTE .COMPLEX 12/23/19 02/01/21 Unknown History diphenhydramine HCl [Benadryl] 25 - 50 mg PO DAILY@12/23/19 02/01/21 09/23/20 History albuterol sulfate 2.5 mg INHALATION Q4H PRN #15 ml 04/23/20 02/01/21 02/01/21 Rx furosemide 40 mg tablet See Rx Instructions .ROUTE 07/03/20 02/01/21 02/01/21 History .COMPLEX tab Azo Urinary Pain Relief 99.5 mg PO PRN 07/08/20 02/01/21 Unknown History Beq-Fcy-Fexd Tab 1 tab PO DAILY@07/08/20 02/01/21 02/01/21 History fluticasone propion-salmeterol 1 inh INHALATION BID@18 07/08/20 02/01/21 02/01/21 History [Advair Diskus] montelukast [Singulair] 10 mg PO DAILY@22 07/08/20 02/01/21 01/31/21 History ondansetron HCl [Zofran] 4 mg PO Q6H PRN #15 tab 07/08/20 02/01/21 Unknown Rx irbesartan 150 mg PO DAILY@0600 07/15/20 02/01/21 02/01/21 History albuterol sulfate 90 mcg/actuation See Rx Instructions .ROUTE 08/06/20 02/01/21 02/01/21 Rx aerosol inhaler .COMPLEX #8.5 inhaler nitroglycerin 0.4 mg sublingual See Rx Instructions .ROUTE 09/10/20 02/01/21 08/27/20 Rx tablet .COMPLEX #25 tablet fluticasone propionate 50 1 spray INTRANASAL BID #15.8 ml 09/11/20 02/01/21 02/01/21 Rx mcg/actuation nasal spray,suspension polyvinyl alcohol-povidone 0.5 1 drp OPHTHALMIC (EYE) TID PRN 11/03/20 02/01/21 Unknown History %-0.6 % eye drops pantoprazole 40 mg tablet,delayed 40 mg PO Q12H #60 tab 12/18/20 02/01/21 02/01/21 Rx release potassium chloride 20 mEq 60 meq PO BID #90 tab 01/12/21 02/01/21 02/01/21 Rx tablet,extended release Allergies Allergy/AdvReac Type Severity Reaction Status Date / Time LATIA Inhibitors Allergy Unknown Verified 11/03/20 08:08 adhesive tape Allergy Unknown Verified 11/03/20 08:08 aspirin Allergy Unknown Verified 11/03/20 08:08 azithromycin [From Zithromax] Allergy ALGY-Anaphy Verified 11/03/20 08:08 laxis Calcium Channel Blocking Allergy Unknown Verified 11/03/20 08:08 Agent Dilt codeine Allergy Unknown Verified 11/03/20 08:08 cyclobenzaprine Allergy Unknown Verified 11/03/20 08:08 [From Flexeril] egg Allergy Unknown Verified 11/03/20 08:08 insect venom Allergy Unknown Verified 11/03/20 08:08 levofloxacin [From Levaquin] Allergy Unknown Verified 11/03/20 08:08 lidocaine Allergy Unknown Verified 11/03/20 08:08 meperidine Allergy Unknown Verified 11/03/20 08:08 morphine Allergy Unknown Verified 11/03/20 08:08 Penicillins Allergy Unknown Verified 11/03/20 08:08 vancomycin Allergy Unknown Verified 11/03/20 08:08 LIDOCAINE Allergy Unknown Uncoded 11/03/20 08:08 PFSH Acute PFSH: Medical History (Updated 02/01/21 @ 16:28 by Jeffrey Wilson MD) Bleeding per rectum Cervical spondylarthritis Chronic right hip pain Cough with hemoptysis CVA (cerebral vascular accident) Demyelinating disease Diverticulitis Diverticulosis Essential (primary) hypertension Flank pain Fourth nerve palsy of left eye GERD (gastroesophageal reflux disease) H/O adenomatous polyp of colon H/O deep venous thrombosis H/O: GI bleed Healed or old pulmonary embolism Hiatal hernia Hypokalemia Morbid obesity with BMI of 40.0-44.9, adult Myocardial infarction LOCO (obstructive sleep apnea) LOCO on CPAP PFO (patent foramen ovale) PND (paroxysmal nocturnal dyspnea) Sixth nerve palsy of right eye Sleep apnea in adult TIA (transient ischemic attack) Surgical History History of esophagogastroduodenoscopy (EGD) (~08/2019) S/P cholecystectomy S/P colonoscopy S/P dilatation and curettage S/P hysterectomy S/P rotator cuff repair S/P total knee replacement Family History Father Myocardial infarction Hypertension Mother Stroke Hypertension Other Clotting disorder Social History Smoking and tobacco status: never smoked Second hand smoke exposure: Yes Alcohol intake: never Lives independently: Yes Household members: none Marital status: Number of children: 2 Current occupational status: retired and disabled History of recent travel: No Current gender identity: Female Vitals/I&O/Wt Last Vital Signs Temp 101.8 F H 02/01/21 08:30 Pulse 84 02/01/21 14:20 Resp 24 H 02/01/21 13:56 BP 124/80 02/01/21 11:40 Pulse Ox 92 02/01/21 13:56 Weight last 48 hrs Weight 90.718 kg Physical Exam Narrative: EXAM NARRATIVE: General: No acute distress, AO x3 HEENT: PERRLA, pupils bilaterally equal and reactive Chest: Normal vesicular breath sounds, no added sounds, equal good air entry bilaterally CVS: S1-S2 regular, no murmurs, no tachycardia, no gallops, no rubs Abdomen: Soft, nontender, no organomegaly, bowel sounds present Neuro: No focal deficits, no facial deformity, AO x3, power 5/5 in all limbs Data : 02/01/21 08:24 02/01/21 08:24 Micro: Microbiology 02/01/21 10:50 Blood Culture - Preliminary Blood SPECIMEN COLLECTED 02/01/21 10:55 Blood Culture - Preliminary Blood SPECIMEN COLLECTED A&P Assessment and plan (1) Hypoxia: Status: Acute (2) COVID-19: Status: Acute (3) Heart failure with preserved ejection fraction, borderline, class III: Status: Acute (4) LOCO (obstructive sleep apnea): Status: Acute (5) Essential (primary) hypertension: Status: Acute (6) Melena: Status: Acute Additional A&P Information Hypoxia secondary to COVID-19 pneumonia: Also history of asthma and diastolic heart failure: Oxygen supplementation keeping saturation over 90%. Start on remdesivir to finish a 5-day course. Decadron 6 mg IV daily. Advair, Spiriva Tessalon Perles. Incentive spirometry, flutter valve. D-dimer elevated. Check CTA to rule out pulmonary embolism. For now we will hold off on starting anticoagulation until his pulmonary embolism if definite given a possible history of bloody bowel movements. Low probability of bacterial superinfection. Check procalcitonin, MRSA swab, urine Legionella, bacterial antigen, sputum culture, blood culture. For now cannot start patient on azithromycin or vancomycin or penicillin as all charted in allergy list. Start patient on doxycycline 100 mg p.o. twice daily for 5 days. Will change antibiotics if needed as per culture results. Monitor inflammatory markers including ferritin, LDH, ESR, CRP daily. If inflammatory markers worsening can plan for Actemra. History of diastolic heart failure: No acute exacerbation at present. Daily weights, fluid restriction 1500 cc, strict input output charting. Check echocardiogram. For now hold off on giving Lasix. Melena: Patient gives history of possible bloody diarrhea. Last EGD in 2019 shows Schatzki's ring, hiatal hernia and mild relief tear. Continue with Protonix 40 mg twice daily. Check stool for occult blood, iron panel, vitamin B12, folate levels start patient on oral iron supplementation. Monitor hemoglobin daily. If stool for occult blood positive will have to consult surgery for possible repeat EGD and colonoscopy. Essential hypertension: Goal blood pressure less than 140/90 mmHg. Continue home dose of ibesartan for now. We will monitor him blood pressure and change medications if needed. Check iron panel, TSH, lipid panel, vitamin B12, folate levels. Full code. Regular diet. Protonix for PUD prophylaxis. Heparin 5000 every 12 for DVT prophylaxis. Attestations Medical Necessity Statement*: Admission for more than 2 midnights for management of hypoxia secondary COVID-19 pneumonia, possible melena Time Spent in Patient Care: Greater than 35 minutes (>than 50% of time spent in counselling and/or direct pt care on unit). Coding Level of Care Code Acute Branch Associate for [facility] Diagnoses Hypoxia R09.02 COVID-19 U07.1 Heart failure with preserved ejection fraction, borderline, class III I50.30 LOCO (obstructive sleep apnea) G47.33 Essential (primary) hypertension I10 Melena K92.1
[2021-02-01 16:08] LABS: Thyroid Stimulating Hormone 0.74 uIU/mL (0.27-4.20)
[2021-02-01] MEDS: remdesivir 200 MG in sodium chloride 0.9% (100 ml) 100 ML 100 MG IV (16:55)
[2021-02-01 17:06] LABS: Folate Level 12.3 ng/mL (4.8-37.3); Vitamin B12 256 pg/mL (232-1245)
[2021-02-01] MEDS: iohexol 300 mg/mL 100 mL Btl IV (18:22)
[2021-02-01] MEDS: dexamethasone 4 mg/mL INJ 6 MG IVP (22:07)
[2021-02-01] MEDS: ferrous gluconate 324 mg Tablet PO (22:13)
[2021-02-01] MEDS: ascorbic acid 500 mg Tablet 1000 MG PO (22:13)
[2021-02-01] MEDS: doxycycline 100 mg Tablet PO (22:13)
[2021-02-01] MEDS: benzonatate 100 mg Capsule PO (22:14)
[2021-02-01] MEDS: docusate sodium 100 mg Capsule PO (22:14)
[2021-02-01] MEDS: fluticasone nasal spray 16gm Btl 1 SPRAY INTRANASAL (22:14)
[2021-02-01] MEDS: pantoprazole DR 40 mg Tablet PO (22:14)
[2021-02-01] MEDS: heparin 5,000 unit/mL INJ 1 mL 5000 UNIT SUBCUT (22:22)
[2021-02-02] VITALS (13 sets, daily range): BP systolic 110–149; BP diastolic 70–80; PULSE 75–92; RESP 16–28; TEMP 36.5–38.7; O2SAT 90–93
[2021-02-02] MEDS: acetaminophen 325 mg Tablet 650 MG PO ×2 (00:15→23:08)
[2021-02-02] MEDS: docusate sodium 100 mg Capsule PO (05:01)
[2021-02-02] MEDS: losartan 50 mg Tablet PO (05:02)
--- NOTE | 2021-02-02 06:00 | XRR_ITS ---
PROCEDURE INFORMATION: Exam: XR Chest Exam date and time: 02/02/2021 6:00 AM Age: 65 years old Clinical indication: Condition or disease; Other: Covid TECHNIQUE: Imaging protocol: XR of the chest. Views: 1 view. COMPARISON: CR (CHEST, ) 02/01/2021 8:22 AM FINDINGS: Lungs: Hypoinflation with interstitial/airspace disease in the setting of reported COVID-19 pneumonitis. Pleural spaces: Small left pleural effusion. Heart/Mediastinum: No cardiomegaly. Bones/joints: Postoperative change in the glenoid. Osteopenia and degenerative change. XR/XR chest 1V portable [id number] IMPRESSION: 1. Hypoinflation with interstitial/airspace disease in the setting of reported COVID-19 pneumonitis. 2. Small left pleural effusion.
[2021-02-02 06:24] LABS: Add Urine Culture? No; Bacteria Urine 1+ /hpf; Bilirubin Urine 1+ (Negative); Blood Urine Neg (Negative); Glucose Urine UA Norm (Normal); Ketones Urine Negative (Negative); Leukocyte Esterase Urine 1+ (Negative); Mucus Urine TRACE /hpf; Nitrate Urine Negative (Negative); Protein Urine 1+ (Negative); RBC Urine 0-4 /hpf (0-2); Specific Gravity, Urine 1.005 (1.005-1.030); Squamous Epithelial Cell Urine 15-25 /hpf (0-5); Urine Appearance SL Hazy (CLEAR); Urine Color Yellow (Yellow); Urobilinogen Urine 4 mg/dL (Negative); WBC Urine 25-40 /hpf (0-5); pH Urine 6.5 (5-7)
[2021-02-02 06:26] LABS: Potassium, Radom Urine 27 mmol/L
[2021-02-02 06:30] LABS: Urine Random Chloride 12 mmol/L; Urine Random Sodium < 10 mmol/L
[2021-02-02 06:39] LABS: Influenza A by IFA Negative (Negative); Influenza B by IFA Negative (Negative)
[2021-02-02 07:06] LABS: D Dimer 1.85 ug/mIFEU (0-0.59)
[2021-02-02 07:09] LABS: Basophils % 0.2 %; Hematocrit 36.9 % (37.0-47.0); Hemoglobin 12.2 g/dL (11.5-15.3); Lymphocytes # 0.5 10^3/uL (0.8-4.8); Lymphocytes % 8.5 %; Mean Corpuscular HGB Conc 33.1 g/dL (30.0-36.0); Mean Corpuscular Hemoglobin 27.3 pg (28.0-34.0); Mean Corpuscular Volume 82.6 fL (81-99); Mean Platelet Volume 10.8 fL (7.4-10.4); Monocytes # 0.1 10^3/uL (0.2-0.9); Monocytes % 2.1 %; Neutrophils # 4.62 10^3/uL (1.8-7.7); Neutrophils % 86.8 %; Nucleated Red Blood Cells % 0 %; Platelet Count 249 10^3/cmm (130-400); Red Blood Count 4.47 10^6/uL (4.1-5.3); White Blood Count 5.3 10^3/uL (4.0-10.0)
[2021-02-02 07:24] LABS: Alanine Aminotransferase 33 U/L (0-33); Albumin Level 3.1 g/dL (3.5-5.2); Alkaline Phosphatase 84 IU/L (35-105); Anion Gap 15.1 (5-19); Aspartate Amino Transferase 53 U/L (0-32); Blood Urea Nitrogen 15 mg/dL (8-23); C Reactive Protein 78.1 mg/L (0.0-4.9); Calcium 8.1 mg/dL (8.5-10.5); Carbon Dioxide 23 mmol/L (22-29); Chloride 107 mmol/L (98-107); Chol HDL Ratio 3.13 mg/dL (0.0-4.40); Cholesterol 119 mg/dL (0-200); Globulin 2.6 g/dL (1.3-4.6); Glomerular Filtration Rate 84.2 mL/min (90-130); Glucose 168 mg/dL (65-115); HDL Cholesterol 38 mg/dL (60-100); LDL Cholesterol Calculated 69 mg/dL (50-129); Magnesium 2.4 mg/dL (1.7-2.3); NT Pro B Type Natriuretic Pept 111 pg/mL (0-125); Osmolality Calculated 297 mOsm/kg (285-295); Phosphorus 3.2 mg/dL (2.5-4.5); Potassium 4.1 mmol/L (3.5-5.1); Sodium 141 mmol/L (136-145); Total Bilirubin 0.4 mg/dL (0.15-1.2); Total Protein 5.7 g/dL (6.6-8.7); Triglycerides 59 mg/dL (0-150); VLDL Cholestrol Calculation 12 mg/dL (0-30)
[2021-02-02 07:48] LABS: Slide Review Slide Review Perform
[2021-02-02 08:40] LABS: Creatine Phosphokinase 578 U/L (26-192)
[2021-02-02 09:28] LABS: Erythrocyte Sedimentation Rate 69 mm/hr (0-15)
[2021-02-02 09:29] LABS: Estmated Average Glucose 137; Hemoglobin A1C 6.4 % (4.0-6.0)
[2021-02-02] MEDS: heparin 5,000 unit/mL INJ 1 mL 5000 UNIT SUBCUT ×2 (09:37→20:43)
[2021-02-02] MEDS: potassium chloride ER 20 mEq Tablet 60 MEQ PO ×2 (09:41→18:24)
[2021-02-02] MEDS: ascorbic acid 500 mg Tablet 1000 MG PO ×2 (09:41→18:24)
[2021-02-02] MEDS: benzonatate 100 mg Capsule PO ×3 (09:42→20:44)
[2021-02-02] MEDS: ferrous gluconate 324 mg Tablet PO ×2 (09:42→18:23)
[2021-02-02] MEDS: doxycycline 100 mg Tablet PO (09:42)
[2021-02-02] MEDS: zinc gluconate 50 mg Tablet PO (09:42)
[2021-02-02] MEDS: fluticasone nasal spray 16gm Btl 1 SPRAY INTRANASAL ×2 (09:42→18:24)
[2021-02-02] MEDS: pantoprazole DR 40 mg Tablet PO ×2 (09:43→22:45)
[2021-02-02 10:43] LABS: Ferritin 334 ng/mL (15-150)
[2021-02-02] MEDS: remdesivir 100 MG in sodium chloride 0.9% (100 ml) 100 ML IV (18:34)
[2021-02-02] MEDS: dexamethasone 4 mg/mL INJ 6 MG IVP (22:45)
--- NOTE | 2021-02-02 23:01 | PM.PN ---
Subjective Subjective: Interval history: She is overall feeling somewhat better. She still having headache, nausea, diarrhea, burning sensation in the center of the chest with deep inspiration and cough. Gets easily dyspneic, fatigued with exertion. Getting up to the commode at bedside. Vitals/I&O/Wt Last Vital Signs Temp 98.2 F 02/02/21 20:00 Pulse 80 02/02/21 20:00 Resp 28 H 02/02/21 20:00 BP 118/78 02/02/21 20:00 Pulse Ox 92 02/02/21 20:00 02/02/21 02/02/21 02/03/21 14:59 22:59 06:59 Intake Total 720 / 720 580 / 1300 Balance 720 / 720 580 / 1300 Weight last 48 hrs Weight 90.718 kg Weight 90.718 kg Physical Exam Const: COMMON NORMALS: no acute distress, patient oriented x3 and alert NUTRITIONAL APPEARANCE: overweight ORIENTATION/CONSCIOUSNESS: Yes awake HENMT: COMMON NORMALS: oropharynx normal Neck/C-Spine: COMMON NORMALS: no JVD Resp: COMMON NORMALS: normal respiratory effort and clear to auscultation bilaterally EFFORT & INSPECTION: Yes able to speak in complete sentences AUSCULTATION: clear to auscultation bilaterally Cardio: COMMON NORMALS: no JVD, regular rhythm, S1 normal heart sound present, S2 normal heart sound present and No murmurs present (Cardio) RHYTHM: regular rhythm HEART SOUNDS: S1 normal heart sound present and S2 normal heart sound present GI: COMMON NORMALS: Normal to inspection, nondistended, normoactive bowel sounds present, Soft to palpation and non-tender PALPATION: Yes Soft to palpation Extremity: COMMON NORMALS: no joint enlargement and no pedal edema Neuro: COMMON NORMALS: patient oriented x3 and moves all extremities SENSORIUM/ORIENTATION: Yes alert Skin: COMMON NORMALS: no rashes or lesions noted GENERAL SKIN EXAM: no rashes or lesions noted Data : 02/02/21 06:05 02/02/21 06:05 Micro: Microbiology 02/01/21 17:38 MRSA Culture - Final Nose 02/01/21 10:50 Blood Culture - Preliminary Blood NEGATIVE TO DATE 02/01/21 10:55 Blood Culture - Preliminary Blood NEGATIVE TO DATE 02/02/21 04:38 Bacterial Antigens - Final Urine Kidney 02/02/21 04:38 Legionella Urinary Antigen - Final Urine,Voided A&P Assessment and plan (1) Hypoxia: Last night slight worsening in oxygen requirement up to 4 L nasal cannula. Today he is feeling slightly better. Some worsening of CRP of 78.1. D-dimer with slight worsening to 1.85. Continue Decadron, remdesivir. Empirically also on doxycycline. Continue Advair, Spiriva. Supportive care. Continue oxygen support. Continue VT prophylaxis with heparin. Recheck inflammatory markers, D-dimer. No PE on CTA. Status: Acute (2) COVID-19: Severe COVID-19 pneumonia with hypoxic respiratory failure as above. Status: Acute (3) Heart failure with preserved ejection fraction, borderline, class III: Chronic diastolic CHF. Monitor volume status. Resume usual dose furosemide in case signs of fluid overload. TTE with normal EF, no regional wall motion abnormalities. Mild LV hypertrophy. Status: Acute (4) LOCO (obstructive sleep apnea): Status: Acute (5) Essential (primary) hypertension: Status: Acute (6) Melena: Pending stool studies. Status: Acute Additional A&P Information Contaminated urine sample: Requested repeat UA Attestations Medical Necessity Statement*: Continue admission for assessment management of severe COVID-19 pneumonia, hypoxic respiratory failure in the setting of chronic diastolic congestive heart failure underlying LOCO and additional comorbidities as above. Coding Level of Care Code Acute Glove Pairer for [facility] Hern[facility]dez Diagnoses Hypoxia R09.02 COVID-19 U07.1 Heart failure with preserved ejection fraction, borderline, class III I50.30 LOCO (obstructive sleep apnea) G47.33 Essential (primary) hypertension I10 Melena K92.1
[2021-02-03] VITALS (14 sets, daily range): BP systolic 112–134; BP diastolic 74–82; PULSE 68–83; RESP 17–28; TEMP 36.5–36.9; O2SAT 91–95
[2021-02-03 02:26] LABS: Add Urine Microscopic? YES; Bilirubin Urine Neg (Negative); Blood Urine Neg (Negative); Glucose Urine UA Norm (Normal); Ketones Urine Negative (Negative); Leukocyte Esterase Urine Trace (Negative); Nitrate Urine Negative (Negative); Protein Urine 1+ (Negative); Specific Gravity, Urine 1.015 (1.005-1.030); Urine Appearance SL Hazy (CLEAR); Urine Color Yellow (Yellow); Urobilinogen Urine 1 mg/dL (Negative); pH Urine 5 (5-7)
[2021-02-03 02:27] LABS: Add Urine Culture? No; Amorphous Sediment Urine 1+ /hpf; Bacteria Urine 1+ /hpf; RBC Urine 0-4 /hpf (0-2); Squamous Epithelial Cell Urine 15-25 /hpf (0-5)
[2021-02-03] MEDS: losartan 50 mg Tablet PO (06:39)
[2021-02-03 06:42] LABS: Basophils % 0.2 %; Hemoglobin 12.3 g/dL (11.5-15.3); Lymphocytes # 0.6 10^3/uL (0.8-4.8); Mean Corpuscular HGB Conc 32.4 g/dL (30.0-36.0); Mean Corpuscular Hemoglobin 26.7 pg (28.0-34.0); Mean Corpuscular Volume 82.4 fL (81-99); Mean Platelet Volume 11.2 fL (7.4-10.4); Monocytes # 0.3 10^3/uL (0.2-0.9); Monocytes % 5.8 %; Neutrophils # 3.87 10^3/uL (1.8-7.7); Neutrophils % 77.2 %; Nucleated Red Blood Cells % 0 %; Platelet Count 312 10^3/cmm (130-400); Red Blood Count 4.61 10^6/uL (4.1-5.3); Red Cell Distribution Width 14.1 % (12.1-15.1)
[2021-02-03 07:09] LABS: D Dimer 1.38 ug/mIFEU (0-0.59)
[2021-02-03 07:14] LABS: Alanine Aminotransferase 29 U/L (0-33); Albumin Level 2.9 g/dL (3.5-5.2); Alkaline Phosphatase 67 IU/L (35-105); Anion Gap 15.2 (5-19); Aspartate Amino Transferase 34 U/L (0-32); Blood Urea Nitrogen 19 mg/dL (8-23); Calcium 8.4 mg/dL (8.5-10.5); Carbon Dioxide 22 mmol/L (22-29); Chloride 110 mmol/L (98-107); Creatinine Clr Calc Pharmacy 88.5769; Globulin 2.8 g/dL (1.3-4.6); Glomerular Filtration Rate 72.2 mL/min (90-130); Glucose 197 mg/dL (65-115); Osmolality Calculated 302 mOsm/kg (285-295); Potassium 5.2 mmol/L (3.5-5.1); Sodium 142 mmol/L (136-145); Total Bilirubin 0.3 mg/dL (0.15-1.2); Total Protein 5.7 g/dL (6.6-8.7)
[2021-02-03 07:23] LABS: C Reactive Protein 32.2 mg/L (0.0-4.9); Creatine Phosphokinase 275 U/L (26-192); Ferritin 360 ng/mL (15-150); NT Pro B Type Natriuretic Pept 303 pg/mL (0-125)
[2021-02-03 08:05] LABS: Slide Review Slide Review Perform
[2021-02-03 08:09] LABS: Erythrocyte Sedimentation Rate 53 mm/hr (0-15)
[2021-02-03] MEDS: ferrous gluconate 324 mg Tablet PO (08:58)
[2021-02-03] MEDS: doxycycline 100 mg Tablet PO (08:58)
[2021-02-03] MEDS: benzonatate 100 mg Capsule PO ×3 (08:59→20:23)
[2021-02-03] MEDS: ascorbic acid 500 mg Tablet 1000 MG PO (08:59)
[2021-02-03] MEDS: zinc gluconate 50 mg Tablet PO (08:59)
[2021-02-03] MEDS: pantoprazole DR 40 mg Tablet PO ×2 (08:59→21:47)
[2021-02-03] MEDS: heparin 5,000 unit/mL INJ 1 mL 5000 UNIT SUBCUT ×2 (08:59→20:23)
[2021-02-03] MEDS: potassium chloride ER 20 mEq Tablet 60 MEQ PO (08:59)
[2021-02-03] MEDS: fluticasone nasal spray 16gm Btl 1 SPRAY INTRANASAL (09:00)
--- NOTE | 2021-02-03 15:33 | PM.PN ---
Subjective Subjective: Interval history: Overall feeling slightly better again. Still having headache. Mild nausea, mild diarrhea. Coughing up some phlegm. Appetite is little bit better. No peripheral edema. She usually takes her potassium only with diuretics. Vitals/I&O/Wt Last Vital Signs Temp 98.0 F 02/03/21 12:00 Pulse 81 02/03/21 12:00 Resp 17 02/03/21 12:00 BP 134/80 02/03/21 12:00 Pulse Ox 95 02/03/21 12:00 02/03/21 02/03/21 02/03/21 06:59 14:59 22:59 Intake Total 600 / 600 Output Total 100 / 100 Balance -100 / 1200 600 / 600 Weight last 48 hrs Weight 111.947 kg Weight 90.718 kg Physical Exam Const: COMMON NORMALS: no acute distress, patient oriented x3 and alert NUTRITIONAL APPEARANCE: overweight ORIENTATION/CONSCIOUSNESS: Yes awake HENMT: COMMON NORMALS: oropharynx normal Neck/C-Spine: COMMON NORMALS: no JVD Resp: COMMON NORMALS: normal respiratory effort and clear to auscultation bilaterally EFFORT & INSPECTION: Yes able to speak in complete sentences AUSCULTATION: clear to auscultation bilaterally Cardio: COMMON NORMALS: no JVD, regular rhythm, S1 normal heart sound present, S2 normal heart sound present and No murmurs present (Cardio) RHYTHM: regular rhythm HEART SOUNDS: S1 normal heart sound present and S2 normal heart sound present GI: COMMON NORMALS: Normal to inspection, nondistended, normoactive bowel sounds present, Soft to palpation and non-tender PALPATION: Yes Soft to palpation Extremity: COMMON NORMALS: no joint enlargement and no pedal edema Neuro: COMMON NORMALS: patient oriented x3 and moves all extremities SENSORIUM/ORIENTATION: Yes alert Skin: COMMON NORMALS: no rashes or lesions noted GENERAL SKIN EXAM: no rashes or lesions noted Data : 02/03/21 06:00 02/03/21 06:00 Micro: Microbiology 02/01/21 17:38 MRSA Culture - Final Nose 02/01/21 10:50 Blood Culture - Preliminary Blood NEGATIVE TO DATE 02/01/21 10:55 Blood Culture - Preliminary Blood NEGATIVE TO DATE A&P Assessment and plan (1) Hypoxia: Oxygenation and inflammatory parameters so far peer to have plateaued. Still requiring 4 L nasal cannula oxygen. Overall feeling a little bit better. CRP still elevated but slightly better at 32.2, D-dimer still elevated but slightly better at 1.38. Continue Decadron, remdesivir, empiric doxycycline. DVT prophylaxis with heparin. Continue Advair, Spiriva. Supportive care. Wean oxygen support as tolerated. No PE on CTA. Status: Acute (2) COVID-19: Severe COVID-19 pneumonia with hypoxic respiratory failure as above. Status: Acute (3) Heart failure with preserved ejection fraction, borderline, class III: Chronic diastolic CHF. Monitor volume status. Resume usual dose furosemide in case signs of fluid overload. TTE with normal EF, no regional wall motion abnormalities. Mild LV hypertrophy. Status: Acute (4) LOCO (obstructive sleep apnea): Status: Acute (5) Essential (primary) hypertension: Status: Acute (6) Melena: Pending stool studies. No bloody stool. So far no recurrence of melena. Status: Acute Additional A&P Information Contaminated urine sample: Repeat UA again contaminated. For now monitor for symptoms. Consider repeat again in 1-2 days. Attestations Medical Necessity Statement*: Continue admission for assessment management of severe COVID-19 pneumonia. Coding Level of Care Code Acute Student Success Counselor for [facility] Edgar Diagnoses Hypoxia R09.02 COVID-19 U07.1 Heart failure with preserved ejection fraction, borderline, class III I50.30 LOCO (obstructive sleep apnea) G47.33 Essential (primary) hypertension I10 Melena K92.1
[2021-02-03] MEDS: ondansetron 2 mg/ML SDV 2 mL 4 MG IVP (19:32)
[2021-02-03] MEDS: remdesivir 100 MG in sodium chloride 0.9% (100 ml) 100 ML IV (19:35)
[2021-02-03] MEDS: acetaminophen 325 mg Tablet 650 MG PO (21:47)
[2021-02-03] MEDS: dexamethasone 4 mg/mL INJ 6 MG IVP (21:47)
[2021-02-04] VITALS (10 sets, daily range): BP systolic 117–135; BP diastolic 66–85; PULSE 67–77; RESP 17–21; TEMP 36.6–36.9; O2SAT 83–98
[2021-02-04] MEDS: losartan 50 mg Tablet PO (05:14)
--- NOTE | 2021-02-04 06:00 | XR_ITS ---
WS: [id number] Portable AP upright chest, 02/04/2021 Clinical Data: covid Comparison: Portable chest, 02/02/2021. Findings: The bilateral pulmonary opacities have not changed. The heart size remains same. No pneumot horax is noted. Monitor leads are on the chest wall. There are orthopedic anchors in the left glenoid rim. Monitor leads on the chest wall. XR/XR chest 1V portable [id number] Impression: No change in bilateral pulmonary opacities.
[2021-02-04 06:14] LABS: Basophils % 0.4 %; Hematocrit 37.6 % (37.0-47.0); Hemoglobin 12.1 g/dL (11.5-15.3); Lymphocytes # 0.7 10^3/uL (0.8-4.8); Lymphocytes % 10.2 %; Mean Corpuscular HGB Conc 32.2 g/dL (30.0-36.0); Mean Corpuscular Hemoglobin 26.7 pg (28.0-34.0); Mean Platelet Volume 11.1 fL (7.4-10.4); Monocytes # 0.3 10^3/uL (0.2-0.9); Monocytes % 3.7 %; Neutrophils # 5.51 10^3/uL (1.8-7.7); Nucleated Red Blood Cells % 0 %; Platelet Count 362 10^3/cmm (130-400); Red Blood Count 4.53 10^6/uL (4.1-5.3); Red Cell Distribution Width 14.2 % (12.1-15.1)
[2021-02-04 06:26] LABS: Alanine Aminotransferase 33 U/L (0-33); Albumin Level 2.9 g/dL (3.5-5.2); Alkaline Phosphatase 61 IU/L (35-105); Anion Gap 16.2 (5-19); Aspartate Amino Transferase 35 U/L (0-32); Blood Urea Nitrogen 18 mg/dL (8-23); Calcium 8.3 mg/dL (8.5-10.5); Carbon Dioxide 21 mmol/L (22-29); Chloride 109 mmol/L (98-107); Globulin 2.6 g/dL (1.3-4.6); Glomerular Filtration Rate 72.2 mL/min (90-130); Glucose 195 mg/dL (65-115); Osmolality Calculated 299 mOsm/kg (285-295); Potassium 5.2 mmol/L (3.5-5.1); Sodium 141 mmol/L (136-145); Total Bilirubin 0.3 mg/dL (0.15-1.2); Total Protein 5.5 g/dL (6.6-8.7)
[2021-02-04 06:36] LABS: C Reactive Protein 12.4 mg/L (0.0-4.9); Creatine Phosphokinase 118 U/L (26-192); Ferritin 307 ng/mL (15-150); NT Pro B Type Natriuretic Pept 820 pg/mL (0-125)
[2021-02-04 06:50] LABS: D Dimer 0.93 ug/mIFEU (0-0.59)
[2021-02-04 07:10] LABS: Slide Review Slide Review Perform
[2021-02-04 07:48] LABS: Erythrocyte Sedimentation Rate 45 mm/hr (0-15)
[2021-02-04] MEDS: ferrous gluconate 324 mg Tablet PO (07:56)
[2021-02-04] MEDS: pantoprazole DR 40 mg Tablet PO (07:56)
[2021-02-04] MEDS: doxycycline 100 mg Tablet PO (07:56)
[2021-02-04] MEDS: zinc gluconate 50 mg Tablet PO (07:56)
[2021-02-04] MEDS: ascorbic acid 500 mg Tablet 1000 MG PO (07:56)
[2021-02-04] MEDS: benzonatate 100 mg Capsule PO (07:56)
[2021-02-04] MEDS: heparin 5,000 unit/mL INJ 1 mL 5000 UNIT SUBCUT (07:57)
[2021-02-04] MEDS: fluticasone nasal spray 16gm Btl 1 SPRAY INTRANASAL (07:57)
--- NOTE | 2021-02-04 11:18 | PM.DCS ---
Discharge Providers Date of Admission: 02/01/21 13:13 Date of Discharge: February 04, 2021 Attending Provider at Admission: Jeffrey Wilson MD Attending Provider at Discharge: Mark Landaverde Primary Care Provider: Noah Topete MD Diagnoses at Discharge Discharge Diagnosis (1) Hypoxia: Status: Acute (2) COVID-19: Status: Acute (3) Heart failure with preserved ejection fraction, borderline, class III: Status: Acute (4) LOCO (obstructive sleep apnea): Status: Acute (5) Essential (primary) hypertension: Status: Acute (6) Melena: Status: Acute Reason for Visit Reason for Visit: NON PRODUCTIVE COUGH Hospital Course Hospital Course 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 She had not obtained COVID-19 vaccination due to concern that she has had egg allergy. On presentation she was found to have COVID-19, was hospitalized for treatment of severe COVID-19 infection, with hypoxia, requiring several liters of oxygen by nasal cannula, with initially worsening up to requiring 4 L by nasal cannula to keep saturation 90%. Inflammatory markers with CRP noted initially rising up to 78, D-dimer up to 1.85. She was treated with remdesivir, Decadron, Advair, Spiriva, empirically treated also with doxycycline. Supportive care. VTE prophylaxis only with SCD, without anticoagulant due to on presentation also noted some blood mixed in with stools. Stool studies have been ordered, no bloody stools noted recurring, and stool sample so far still not collected. She otherwise has been gradually improving every day, with resolution of headache, nausea vomiting, with improving appetite, with resolution of diarrhea. Continued improvement of malaise. Oxygenation had stabilized, and currently she is on 4 L saturating 94%. She is breathing comfortably. As subjectively and objectively her condition continues to improve, she feels much more comfortable about returning home. We will ask her to complete additional 2 days of Decadron and 3 days with empiric doxycycline. She is discharging with oxygen, and will be tapering off at home slowly. She is asked to follow-up with her ground support equipment mechanic. Her asthma has not been found in exacerbation. She also has history of chronic diastolic heart failure which also is not noted exacerbated. She has not required any diuretic in the hospital. Her potassium supplements are held at this time due to mild hyperkalemia, potassium 5.2 stable last several days after initially receiving potassium supplementation on admission. Irbesartan dose is decreased due to same. Please reassess blood counts in office. She has not had any significant decline in hemoglobin here. Please follow-up on the noted melanotic/bloody stools, consider additional outpatient work-up after acute condition resolves, consider endoscopic evaluation. Please discussed with her again, encouraged vaccination for COVID-19. Pfizer and modern vaccines do not contain any egg protein. She knows to watch out for symptoms of fluctuation in her condition, understands that sometimes condition may acutely worsen, as well as additional complications COVID-19 including thrombosis, UT, CVA, other, and understands to seek medical attention immediately in case of any concerning symptoms. Physical Exam Const: COMMON NORMALS: no acute distress, patient oriented x3 and alert GENERAL APPEARANCE: cooperative and comfortable NUTRITIONAL APPEARANCE: overweight ORIENTATION/CONSCIOUSNESS: Yes awake OTHER: In good spirits. Continues to improve and feel better. HENMT: COMMON NORMALS: oropharynx normal Neck/C-Spine: COMMON NORMALS: no JVD Resp: COMMON NORMALS: normal respiratory effort and clear to auscultation bilaterally EFFORT & INSPECTION: Yes able to speak in complete sentences AUSCULTATION: clear to auscultation bilaterally Cardio: COMMON NORMALS: no JVD, regular rhythm, S1 normal heart sound present, S2 normal heart sound present and No murmurs present (Cardio) RHYTHM: regular rhythm HEART SOUNDS: S1 normal heart sound present and S2 normal heart sound present GI: COMMON NORMALS: Normal to inspection, nondistended, normoactive bowel sounds present, Soft to palpation and non-tender PALPATION: Yes Soft to palpation Extremity: COMMON NORMALS: no joint enlargement and no pedal edema Neuro: COMMON NORMALS: patient oriented x3 and moves all extremities SENSORIUM/ORIENTATION: Yes alert Skin: COMMON NORMALS: no rashes or lesions noted GENERAL SKIN EXAM: no rashes or lesions noted Discharge Data Data Completed and Pending: Completed Studies During Hospitalization Category Date Time Status CT angio chest PE protcl [id number] Urge nt Cat Scan 02/01/21 15:34 Completed XR chest 1V stacia ble [id number] Q48H Exams 02/02/21 06:00 Completed XR chest 1V stacia ble 57156 Q48H Exams 02/04/21 06:00 Completed XR chest 1V stacia ble [id number] Stat Exams 02/01/21 07:59 Completed CV. echo complete * [id number] Routine Ultrasound 02/01/21 15:34 Completed Pending at discharge Category Date Time Status XR chest 1V stacia ble 37476 Q48H Exams 02/06/21 06:00 Ordered Blood Culture Sta t Lab 02/01/21 10:50 Results Clostridioides Di fficile PCR Routin e Lab 02/01/21 19:40 Ordered Complete Blood Co unt w/Auto AM LABS Lab 02/05/21 04:00 Ordered Comprehensive Met abolic Panel AM LA BS Lab 02/05/21 04:00 Ordered Enteric Bacterial Panel by PCR Rout ine Lab 02/01/21 19:40 Ordered Enteric Parasite Panel by PCR Routi ne Lab 02/01/21 19:40 Ordered Immunochemical Fe moraima OCB Routine Lab 02/01/21 16:28 Ordered Lactoferrin Routi ne Lab 02/01/21 19:40 Ordered Labs from last 24 hours 02/04/21 02/04/21 02/04/21 05:35 05:35 05:35 WBC 7.0 RBC 4.53 Hgb 12.1 Hct 37.6 MCV 83.0 MCH 26.7 L MCHC 32.2 RDW 14.2 Plt Count 362 MPV 11.1 H Neut % (Auto) 79.0 Lymph % (Auto) 10.2 Sutton % (Auto) 3.7 Eos % (Auto) 0.0 Baso % (Auto) 0.4 Neut # (Auto) 5.51 Lymph # (Auto) 0.7 L Sutton # (Auto) 0.3 Eos # (Auto) 0.0 Baso # (Auto) 0.0 Nucleated RBC % (a uto) 0 Nucleated RBCs # 0.0 ESR D-Dimer Sodium 141 Potassium 5.2 H Chloride 109 H Carbon Dioxide 21 L Anion Gap 16.2 BUN 18 Creatinine 0.8 GFR Calculation 72.2 L Glucose 195 H Calculated Osmolal ity 299 H Calcium 8.3 L Ferritin 307 H Total Bilirubin 0.3 AST 35 H ALT 33 Alkaline Phosphata se 61 Creatine Kinase 118 C-Reactive Protein 12.4 H NT-Pro-B Natriuret Pep 820 H Total Protein 5.5 L Albumin 2.9 L Globulin 2.6 02/04/21 02/04/21 05:35 05:35 WBC RBC Hgb Hct MCV MCH MCHC RDW Plt Count MPV Neut % (Auto) Lymph % (Auto) Sutton % (Auto) Eos % (Auto) Baso % (Auto) Neut # (Auto) Lymph # (Auto) Sutton # (Auto) Eos # (Auto) Baso # (Auto) Nucleated RBC % (a uto) Nucleated RBCs # ESR 45 H D-Dimer 0.93 H Sodium Potassium Chloride Carbon Dioxide Anion Gap BUN Creatinine GFR Calculation Glucose Calculated Osmolal ity Calcium Ferritin Total Bilirubin AST ALT Alkaline Phosphata se Creatine Kinase C-Reactive Protein NT-Pro-B Natriuret Pep Total Protein Albumin Globulin Vitals: Last Vital Signs Temp 98.5 F 02/04/21 08:00 Pulse 75 02/04/21 08:24 Resp 18 02/04/21 08:20 BP 132/74 02/04/21 08:00 Pulse Ox 94 02/04/21 08:20 Discharge Plan Discharge Patient Disposition: Home Condition: Stable Prescriptions: New dexamethasone [Decadron] 6 mg tablet 6 mg PO DAILY Qty: 2 RF: 0 doxycycline monohydrate 100 mg Tablet 100 mg PO BID Qty: 6 RF: 0 Continued docusate sodium [Colace] 100 mg capsule 100 mg PO BID@ RF: 0 acetaminophen [Tylenol] 325 mg tablet 325 - 650 mg PO PRN RF: 0 furosemide 40 mg tablet See Rx Instructions .ROUTE .COMPLEX RF: 0 Clear Eyes Natural Tears 0.5-0.6 % drops 1 drp ophthalmic (eye) TID PRN (Reason: Dry Eyes) RF: 0 albuterol sulfate 2.5 mg /3 mL (0.083 %) solution for nebulization 2.5 mg INHALATION Q4H PRN (Reason: Shortness Of Breath) Qty: 15 RF: 0 albuterol sulfate [ProAir HFA] 90 mcg/actuation HFA aerosol inhaler See Rx Instructions .ROUTE .COMPLEX Qty: 8.5 RF: 3 nitroglycerin 0.4 mg tablet, sublingual See Rx Instructions .ROUTE .COMPLEX Qty: 25 RF: 7 fluticasone propionate [Flonase Allergy Relief] 50 mcg/actuation spray,suspension 1 spray INTRANASAL BID Qty: 15.8 RF: 3 pantoprazole 40 mg tablet,delayed release (DR/EC) 40 mg PO Q12H Qty: 60 RF: 3 Azo Urinary Pain Relief 99.5 mg Tablet 99.5 mg PO PRN RF: 0 Kxb-Iac-Iuyr Tab 1 tab PO DAILY@06 RF: 0 fluticasone propion-salmeterol [Advair Diskus] 500-50 mcg/dose blister with device 1 inh INHALATION BID@06,18 RF: 0 montelukast [Singulair] 10 mg tablet 10 mg PO DAILY@22 RF: 0 ondansetron HCl [Zofran] 4 mg tablet 4 mg PO Q6H PRN (Reason: nausea and vomiting) Qty: 15 RF: 0 diphenhydramine HCl [Benadryl] 25 mg Capsule 25 - 50 mg PO DAILY@22 RF: 0 Mylanta Gas Minis 42 mg Tablet,Chewable See Rx Instructions .ROUTE .COMPLEX RF: 0 Changed irbesartan 150 mg tablet 75 mg PO DAILY@0600 Qty: 0 RF: 0 Discontinued potassium chloride 20 mEq tablet extended release 60 meq PO BID Qty: 90 RF: 6 Discharge Orders: Discharge Order (Routine); Ordered 02/04/21 Ordered By: Mark Landaverde Referrals: DatarJulio MD [Physician] - Noah Topete MD [Primary Care Provider] - 7-10 days Discharge Diet: Advance as tolerated and Usual diet Discharge Activity: Increase activity as tolerated, Oxygen as instructed and Cpap/Bipap as instructed Patient Instructions: Doxycycline (By mouth), Dexamethasone (By mouth) Activity Restrictions/Additional Instructions: Continue to wear oxygen at home, wean down slowly as tolerating. Maintain saturation above 90-92%. If persistently below 88-90%, increase oxygen flow rate. Your oxygen demand may temporarily increase with activity, but should improve with rest or increased oxygen flow. If it is not improving, and saturation stays below 88%, if you are developing severe shortness of breath, extreme tiredness, chest pain, or any other concerning symptoms, please seek medical attention. Please maintain isolation until 02/11. Please consider obtaining COVID-19 vaccination. Neither Pfizer nor modern vaccinations contain any egg proteins and are not contraindicated in egg allergy. Please continue follow-up with your ground support equipment mechanic. If you notice recurrence of any more dark stools, please discuss with your primary doctor additional testing including fecal occult blood testing, consideration for referral for endoscopic evaluation to exclude any malignant causes. Please avoid potassium supplementation. Reduce potassium rich foods. For now your irbesartan dose is reduced to 75 mg as well to prevent accumulation of potassium due to mild hyperkalemia noted potassium 5.2 yesterday and today. Please have your primary doctor recheck your potassium level at next visit. Discharge Attestations Time Spent in Discharge Care*: greater than 30 min Quality Metrics Clinical Quality Measures During this hospital stay, did patient experience: None Coding Level of Care Code Acute g FW DC note Diagnoses Hypoxia R09.02 COVID-19 U07.1 Heart failure with preserved ejection fraction, borderline, class III I50.30 LOCO (obstructive sleep apnea) G47.33 Essential (primary) hypertension I10 Melena K92.1
== END 2021-02-04 15:37 | disposition home or self-care (01) | DRG 177 ==
LOC: ER 15:03 → MEDSURG 18:22
PROVIDERS: Physician Assistant; Admitting Provider Student in an Organized Health Care Education/Training Program; Emergency Provider Family Medicine; PCP Family Medicine Adult Medicine; Visit Provider Internal Medicine
DX: U07.1 COVID-19 (principal); J12.82 Pneumonia due to coronavirus disease 2019; J96.01 Acute respiratory failure with hypoxia; I50.32 Chronic diastolic (congestive) heart failure; Z68.41 Body mass index [BMI] 40.0-44.9, adult; K92.1 Melena; J45.909 Unspecified asthma, uncomplicated; Z86.73 Personal history of transient ischemic attack (TIA), and cerebral infarction without residual deficits; I11.0 Hypertensive heart disease with heart failure; K21.9 Gastro-esophageal reflux disease without esophagitis; Z86.718 Personal history of other venous thrombosis and embolism; Z86.711 Personal history of pulmonary embolism; E66.01 Morbid (severe) obesity due to excess calories; I25.2 Old myocardial infarction; G47.33 Obstructive sleep apnea (adult) (pediatric); E87.5 Hyperkalemia; Z79.51 Long term (current) use of inhaled steroids
CPT/HCPCS: 36415; 36600; 71045; 71275; 80051; 80053; 80061; 81001; 82330; 82436; 82550; 82607; 82728; 82746; 82805; 83036; 83540; 83550; 83605; 83690; 83735; 83880; 84100; 84133; 84145; 84300; 84443; 84484; 85025; 85378; 85651; 86140; 86403; 87040; 87426; 87449; 87641; 87804; 93005; 93306; 94640; 96365; 96367; 96372; 99285; J1100; J1644; J2405; J3535; Q9967

== ENCOUNTER → 2021-02-11 14:33 | Outpatient (BNVA) | payer MEDICAID, SELFPAY | PROVIDERS: PCP Family Medicine Adult Medicine; Visit Provider Family Medicine Adult Medicine | DX: U07.1 COVID-19 (principal); K57.90 Diverticulosis of intestine, part unspecified, without perforation or abscess without bleeding; Z09 Encounter for follow-up examination after completed treatment for conditions other than malignant neoplasm; R09.02 Hypoxemia; I63.9 Cerebral infarction, unspecified | CPT/HCPCS: 80053; 85025 ==

== ENCOUNTER → 2021-05-13 10:24 | Outpatient (BNVA) | payer MEDICARE, MEDICAID, SELFPAY | PROVIDERS: PCP Family Medicine Adult Medicine; Visit Provider Family Medicine Adult Medicine | DX: R73.03 Prediabetes (principal); R94.4 Abnormal results of kidney function studies; E66.9 Obesity, unspecified; I10 Essential (primary) hypertension | CPT/HCPCS: 80053; 83036 ==

== ENCOUNTER → 2022-05-13 10:13 | Outpatient (BNVA) | payer MEDICARE, MEDICAID, SELFPAY | PROVIDERS: PCP Family Medicine Adult Medicine; Visit Provider Family Medicine Adult Medicine | DX: I10 Essential (primary) hypertension (principal); R70.0 Elevated erythrocyte sedimentation rate; R73.03 Prediabetes; I63.9 Cerebral infarction, unspecified; R94.4 Abnormal results of kidney function studies; G47.33 Obstructive sleep apnea (adult) (pediatric); E66.9 Obesity, unspecified; Z99.89 Dependence on other enabling machines and devices; K57.90 Diverticulosis of intestine, part unspecified, without perforation or abscess without bleeding; J30.9 Allergic rhinitis, unspecified; J45.40 Moderate persistent asthma, uncomplicated; K44.9 Diaphragmatic hernia without obstruction or gangrene; K21.9 Gastro-esophageal reflux disease without esophagitis | CPT/HCPCS: 80053; 83036; 85025; 85651 ==

== ENCOUNTER → 2023-05-19 12:01 | Outpatient (BNVA) | payer MEDICARE, MEDICAID, SELFPAY | PROVIDERS: PCP Family Medicine Adult Medicine; Visit Provider Family Medicine Adult Medicine | DX: I50.30 Unspecified diastolic (congestive) heart failure (principal); Z87.898 Personal history of other specified conditions; I10 Essential (primary) hypertension; E61.1 Iron deficiency | CPT/HCPCS: 80053; 80061; 83036; 83540; 85025 ==

== ENCOUNTER → 2024-08-13 14:38 | Outpatient (BNVA) | payer MEDICARE, MEDICAID, SELFPAY | PROVIDERS: PCP Family Medicine; Visit Provider Family Medicine | DX: I10 Essential (primary) hypertension (principal) | CPT/HCPCS: 80053; 80061; 85025 ==

== ENCOUNTER 2024-10-08 08:08 | Outpatient (CLI) | payer MEDICARE, MEDICAID, SELFPAY ==
--- NOTE | 2024-10-08 08:30 | USCV_ITS ---
Manuela Julien Age: 68 Gender: F : 1955 Exam Date: 10/08/2024 08:42 Ordering Phys: Davide Campbell MD Technologist: MARY CARMEN Exam Location: [facility] [place] Indication: HFpEF BP: 118 / 68 HR: 69 Rhythm: Sinus Technical Quality: Adequate MEASUREMENTS (Male / Female) Normal Values 2D ECHO LV Diastolic Diameter PLAX 4.3 cm 4.2 - 5.9 / 3.9 - 5.3 cm IVS Diastolic Thickness 0.8 cm 0.6 - 1.0 / 0.6 - 0.9 cm IVS Systolic Thickness 1.3 cm LVPW Diastolic Thickness 0.9 cm 0.6 - 1.0 / 0.6 - 0.9 cm LVPW Systolic Thickness 1.5 cm LV Ejection Fraction 2D Teich 55.6 % LV Ejection Fraction MOD 4C 62.0 % LV Ejection Fraction MOD 2C 67.7 % LV Ejection Fraction 2C AL 67.1 % LA Diameter 1.9 cm RA Systolic Volume 4C AL 20.7 ml RA Systolic Volume 4C MOD 19.7 ml LA Sys Volume AL 29.5 cm cubed LA Sys Volume Index AL 14.5 cm cubed/m squared M-MODE LA Ao Ratio MM 1.4 AV Cusp Separation MM 1.0 cm DOPPLER AV Peak Velocity 107.0 cm/s LVOT Peak Velocity 93.0 cm/s MV Peak Velocity 107.0 cm/s MV Area PHT 3.4 cm squared Mitral E to A Ratio 0.6 TR Peak Velocity 111.0 cm/s TR Peak Gradient 4.9 mmHg TV Peak E Velocity 66.0 cm/s PV Peak Velocity 91.0 cm/s FINDINGS Left Ventricle Left ventricle is normal in size. LV systolic function is normal with EF of 60-65%. No regional wall motion abnormalities are seen. Grade 1 diastolic dysfunction Right Ventricle Grossly normal Right Atrium Normal in size Left Atrium Normal in size Mitral Valve Structurally normal mitral valve. Trace mitral regurgitation. Aortic Valve Structurally normal aortic valve. No significant stenosis or regurgitation. Tricuspid Valve Insufficient TR jet to evaluate RVSP. Pulmonic Valve Not well visualized Pericardium Small sized pericardial effusion. Aorta Normal in size IVC Appears to be normal CONCLUSIONS LV systolic function is normal with EF of 60-65% Grade 1 diastolic dysfunction Trace mitral regurgitation Small sized pericardial effusion Compared to prior echocardiogram from 2020, patient has small sized pericardial effusion. Jayy Abernathy MD (Electronically Signed) Final Date: 11 October 2024 11:33 S
== END 2024-10-08 08:09 | disposition home or self-care (01) ==
PROVIDERS: PCP Family Medicine; Visit Provider Family Medicine
DX: I50.30 Unspecified diastolic (congestive) heart failure (principal); R93.1 Abnormal findings on diagnostic imaging of heart and coronary circulation; I31.39 Other pericardial effusion (noninflammatory)
CPT/HCPCS: 93306